=== PATIENT | female | born 1995 | race Caucasian/White ===

== ENCOUNTER 2017-11-01 18:39 | Emergency (ER) | payer BC, SELFPAY ==
[2017-11-01 19:04] LABS: #Basophils 0.2 thou/uL (0.0-0.2); #Eosinphils 0.2 thou/uL (0.0-0.7); #Lymphocytes 3.8 thou/uL (1.20-3.40); %Basophils 1.3 % (0.0-1.0); %Eosinophils 1.6 % (0.0-10.0); %Lymphocytes 31.7 % (21.0-51.0); %Monocytes 7.9 % (0.0-10.0); Hematocrit 47.4 % (36.0-47.0); Mean Platelet Volume 7.5 fL (7.4-10.4); Red Blood Cell (RBC) Count 5.13 mill/uL (4.20-5.40); White Blood Cell (WBC) Count 12.1 thou/uL (4.8-10.8)
[2017-11-01] MEDS ORDERED: Ketorolac Tromethamine 30 MG/ML VIAL ONE (19:04)
[2017-11-01 19:06] LABS: Bilirubin Negative (Negative); Blood, Urine Small (Negative); Glucose, Urine (Dipstick) Negative (Negative); Ketone, Urine Negative (Negative); Nitrite Negative (Negative); Protein, Urine (Dipstick) Negative (Neg-Trace); Urobilinogen 0.2 mg/dL (0.2-1.0)
[2017-11-01 19:09] LABS: Bacteria/HPF 2+ HPF (None Seen); Squamous Epithelial 0-3 HPF (0-3)
[2017-11-01] MEDS ORDERED: Ondansetron HCl/PF 4 MG/2 ML Vial ONE (19:20)
[2017-11-01 19:22] LABS: ALT (SGPT) 14 U/L (8-55); AST (SGOT) 15 U/L (5-34); Alkaline Phosphatase 70 U/L (40-150); Anion Gap 14 mmol/L (10-20); BUN (Urea Nitrogen) 10 mg/dL (7.0-18.7); Bilirubin, Total 0.4 mg/dL (0.2-1.2); Calc. Creatinine Clearance 0 mL/min (70-130); Calcium 9.6 mg/dL (7.8-10.44); Carbon Dioxide 27 mmol/L (22-29); Chloride 106 mmol/L (98-107); Estimated GFR-MDRD Greater than 90; Lipase 36 U/L (8-78); Protein, Total 7.5 g/dL (6.0-8.3)
[2017-11-01] MEDS ORDERED: HYDROcodone/Acetaminophen 10/325 mg Tablet ONE (19:48)
[2017-11-01] MEDS ORDERED: cefTRIAXone\\ROCEPHIN 1 GM VIAL ONE (19:48)
--- NOTE | 2017-11-01 20:13 | CT ---
EXAM: ABDOMEN CT WITHOUT CONTRAST PELVIC CT WITHOUT CONTRAST 11/01/17 HISTORY: Right flank pain. COMPARISON: None. TECHNIQUE: An abdomen and pelvic CT are performed without IV contrast. Coronal reformatted images are submitted for interpretation. FINDINGS: ABDOMEN CT: The lung bases are clear. Heart size is normal. No significant pericardial fluid. Symmetric attenuati on of the psoas muscles. Gallbladder is unremarkable. Limited evaluation of the solid organs due to lack of IV contrast. Grossly, no solid organ abnormalit y. No mesenteric mass, lymphadenopathy, free air or free fluid. There are a few scattered nonspecific me senteric lymph nodes. No gastrohepatic, retrocrural or periportal lymphadenopathy. There are nonobstructing 5 and 2 mm calcification in the right intrarenal collecting system. With reg franki to the right kidney, no evidence of hydronephrosis. Right ureter has a normal caliber. No hydrour eter, periureteral fat stranding or ureterolithiasis. With regard to the left kidney, there is a mildly hyperdense focus in the lower pole measuring 0.4 cm . There is associated convexity of the adjacent parenchyma. Evaluation is limited. No evidence of lef t sided obstructive uropathy. Limited evaluation of the alimentary canal due to lack of oral contrast . No bowel obstruction. Normal caliber appendix is noted. Appendicoliths are identified. Fecal mater ial in a nondistended, nondilated colon. PELVIC CT: The uterus and adnexa are unremarkable. Bladder calcifications are not appreciated. No pelvic mass, l ymphadenopathy, free air or free fluid. There are no lytic or blastic lesions in the osseous structures. IMPRESSION: 1. No evidence of obstructive uropathy. 2. Nonobstructing calcifications in the right intrarenal collecting system. 3. Convexity with hyperdensity involving the lower pole of the left kidney, incompletely evaluat ed. A hemorrhagic or complex lesion in the lower pole left kidney is favored. Nonemergent renal mass protocol CT is recommended. 4. Normal caliber appendix. POS: [facility]
== END 2017-11-01 20:30 | disposition home or self-care (01) ==
LOC: SCSER 18:39
DX: N20.0 Calculus of kidney (principal); N39.0 Urinary tract infection, site not specified
CPT/HCPCS: 74176; 80053; 81003; 81015; 81025; 83690; 85025; 87077; 87086; 87186; 96361; 96365; 96366; 96375; J0696; J1885; J2405

== ENCOUNTER 2017-11-18 18:14 | Emergency (ER) | payer BC ==
[2017-11-18 18:41] LABS: #Basophils 0.1 thou/uL (0.0-0.2); #Lymphocytes 0.7 thou/uL (1.20-3.40); #Monocytes 0.5 thou/uL (0.11-0.59); #Neutrophils 8.4 thou/uL (1.40-6.50); %Basophils 0.8 % (0.0-1.0); %Eosinophils 0.1 % (0.0-10.0); %Lymphocytes 7.3 % (21.0-51.0); %Monocytes 5.6 % (0.0-10.0); Hematocrit 46.5 % (36.0-47.0); Mean Platelet Volume 8.2 fL (7.4-10.4); Red Blood Cell (RBC) Count 5.11 mill/uL (4.20-5.40); White Blood Cell (WBC) Count 9.8 thou/uL (4.8-10.8)
[2017-11-18] MEDS ORDERED: Ondansetron HCl/PF 4 MG/2 ML Vial ONE (18:56)
[2017-11-18 18:57] LABS: ALT (SGPT) 18 U/L (8-55); AST (SGOT) 18 U/L (5-34); Alkaline Phosphatase 66 U/L (40-150); Anion Gap 16 mmol/L (10-20); BUN (Urea Nitrogen) 15 mg/dL (7.0-18.7); Bilirubin, Total 0.4 mg/dL (0.2-1.2); Calc. Creatinine Clearance 0 mL/min (70-130); Calcium 8.6 mg/dL (7.8-10.44); Carbon Dioxide 22 mmol/L (22-29); Chloride 106 mmol/L (98-107); Estimated GFR-MDRD Greater than 90; Globulin 2.4 g/dL (2.4-3.5); Lipase 32 U/L (8-78); Protein, Total 6.2 g/dL (6.0-8.3)
--- NOTE | 2017-11-18 19:38 | RAD ---
CHEST PA AND LATERAL: 11/18/17 HISTORY: 22-year-old female with nausea, vomiting, diarrhea, cramping and chills. COMPARISON: 02/19/09. FINDINGS: Heart size is normal. The lungs are clear. IMPRESSION: No acute intrathoracic disease. No evidence for pneumonia or other acute process. POS: [facility]
[2017-11-18] MEDS ORDERED: Ketorolac Tromethamine 30 MG/ML VIAL ONE (19:40)
[2017-11-18 20:28] LABS: Bilirubin Small (Negative); Blood, Urine Negative (Negative); Glucose, Urine (Dipstick) Negative (Negative); Ketone, Urine 15 mg/dL (Negative); Nitrite Negative (Negative); Protein, Urine (Dipstick) Negative (Neg-Trace)
[2017-11-18 20:35] LABS: Amphetamine Not Detected (NotDetected); Methadone Not Detected (NotDetected); Methamphetamine Not Detected (NotDetected)
== END 2017-11-18 21:13 | disposition home or self-care (01) ==
LOC: SCSER 18:14
DX: R11.2 Nausea with vomiting, unspecified (principal); R19.7 Diarrhea, unspecified; F17.200 Nicotine dependence, unspecified, uncomplicated
CPT/HCPCS: 36415; 71020; 80053; 80306; 81003; 81025; 83690; 85025; 87081; 87430; 96361; 96374; 96375; J1885; J2405

== ENCOUNTER 2017-11-30 01:34 | Emergency (ER) | payer BC ==
[2017-11-30] MEDS ORDERED: Morphine 2 MG/ML SYRINGE ONE (02:12)
[2017-11-30] MEDS ORDERED: Ketorolac Tromethamine 30 MG/ML VIAL ONE (02:12)
[2017-11-30] MEDS ORDERED: Ondansetron HCl/PF 4 MG/2 ML Vial ONE (02:12)
[2017-11-30] MEDS ORDERED: Morphine 4 MG/ML VIAL ONE (02:12)
[2017-11-30 02:17] LABS: #Basophils 0.1 thou/uL (0.0-0.2); #Eosinphils 0.2 thou/uL (0.0-0.7); #Lymphocytes 3.2 thou/uL (1.20-3.40); #Neutrophils 13.9 thou/uL (1.40-6.50); %Basophils 0.6 % (0.0-1.0); %Eosinophils 1.1 % (0.0-10.0); %Lymphocytes 16.5 % (21.0-51.0); %Monocytes 10.1 % (0.0-10.0); %Neutrophils 71.8 % (42.0-75.0); Hemoglobin 15.7 g/dL (12.0-16.0); Mean Corpuscular HGB CONC 34.2 g/dL (32.0-36.0); Mean Corpuscular Hemoglobin 32.9 pg (27.0-31.0); Mean Corpuscular Volume 96.1 fl (81.0-99.0); Mean Platelet Volume 7.2 fL (7.4-10.4); Platelet Count 211 thou/uL (130-400); Red Blood Cell (RBC) Count 4.77 mill/uL (4.20-5.40); White Blood Cell (WBC) Count 19.4 thou/uL (4.8-10.8)
[2017-11-30 02:51] LABS: BHCG - Serum Negative (NEGATIVE); Pregs Control Background? CLEAR/WHITE (CLR/WHITE); Pregs Control Bar Appear? YES (CONTROL BAR)
[2017-11-30 03:04] LABS: ALT (SGPT) 19 U/L (8-55); AST (SGOT) 18 U/L (5-34); Albumin 3.8 g/dL (3.5-5.0); Alkaline Phosphatase 51 U/L (40-150); Anion Gap 13 mmol/L (10-20); BUN (Urea Nitrogen) 15 mg/dL (7.0-18.7); Bilirubin, Total 0.6 mg/dL (0.2-1.2); Calc. Creatinine Clearance 0 mL/min (70-130); Calcium 9.5 mg/dL (7.8-10.44); Carbon Dioxide 25 mmol/L (22-29); Chloride 106 mmol/L (98-107); Estimated GFR-MDRD 63; Globulin 2.2 g/dL (2.4-3.5); Glucose 108 mg/dL (70-105); Lipase 28 U/L (8-78); Magnesium 1.7 mg/dL (1.6-2.6); Potassium 3.3 mmol/L (3.5-5.1); Sodium 141 mmol/L (136-145)
[2017-11-30 03:59] LABS: Bilirubin Negative (Negative); Blood, Urine Small (Negative); Clarity CLEAR (Clear); Glucose, Urine (Dipstick) Negative (Negative); Leukocyte Negative (Negative); Nitrite Negative (Negative); Protein, Urine (Dipstick) 100 mg/dL (Neg-Trace); Specific Gravity, Urine 1.013 (1.002-1.036); Urobilinogen 0.2 mg/dL (0.2-1.0)
[2017-11-30 04:02] LABS: Bacteria/HPF None Seen HPF (None Seen); Hyaline Casts/LPF 0-3 HYALINE CAST LPF (0-3 Hyaline); Pathc Cast-AUWi Flag 0.13 (0-2.49); RBC/HPF 0-3 HPF (0-3); Squamous Epithelial 0-3 HPF (0-3); WBC/HPF 0-3 HPF (0-3)
[2017-11-30 04:11] LABS: Pregnancy Test - Urine (BHCG) Negative (Negative); Pregu Control Background? CLEAR/WHITE (CLR/WHITE); Pregu Control Bar Appear? YES (CONTROL BAR); Specific Gravity 1.013 (1.002-1.036)
--- NOTE | 2017-11-30 08:06 | CT ---
PRELIMINARY REPORT/[facility]/EMERGENCY AFTER HOURS PROCEDURE: EXAM: CT Abdomen and Pelvis Without Intravenous Contrast CLINICAL HISTORY: 22 years old, female; Pain; Abdominal pain; Flank; Other: Bilater flank pain; Patient HX: 22 yo f. Pt presents with n/v, unable to tolerate po, fever at home, having bilateral flank pain with known bila teral stones. Mother reports that pt was normal when she went to bed but at midnight had the sudden o nset of pain. TECHNIQUE: Axial computed tomography images of the abdomen and pelvis without intravenous contrast. Coronal reformatted images were created and reviewed. COMPARISON: No relevant prior studies available. FINDINGS: Lower thorax: No acute findings. ABDOMEN: Liver: No acute findings. Gallbladder and bile ducts: No acute findings. No calcified stones. No ductal dilation. Pancreas: No acute findings. No ductal dilation. Spleen: No acute findings. No splenomegaly. Adrenals: No acute findings. No mass. Kidneys and ureters: Nonspecific mild focal right interpolar level perinephric fluid stranding. Nono bstructing 6 mm stone, left lower pole. Stomach and bowel: No acute findings. No obstruction. No mucosal thickening. Appendix: No findings to suggest acute appendicitis. PELVIS: Bladder: No acute findings. No stones. Reproductive: Unremarkable as visualized. ABDOMEN and PELVIS: Intraperitoneal space: No acute findings. No free air. No significant fluid collection. Bones/joints: No acute fracture. No dislocation. Soft tissues: No acute findings. Vasculature: No acute findings. No abdominal aortic aneurysm. Lymph nodes: No acute findings. No enlarged lymph nodes. IMPRESSION: Mild nonspecific right perinephric fluid stranding, perhaps related to pyelonephritis or recent stone passage. No hydronephrosis. Nonobstructing left renal stone. Normal appendix. Thank you for allowing us to participate in the care of your patient. Dictated and Authenticated by: Stone Greenfield MD 11/30/2017 4:34 AM Central Time ([place] & [place]) FINAL REPORT CT ABDOMEN AND PELVIS WITHOUT CONTRAST: I agree with the preliminary report given by Dr. Stone Greenfield of [facility]. POS: [facility]
== END 2017-11-30 06:00 | disposition home or self-care (01) ==
LOC: ERS 01:34
DX: N20.0 Calculus of kidney (principal); F17.210 Nicotine dependence, cigarettes, uncomplicated
CPT/HCPCS: 74176; 80053; 81003; 81015; 81025; 83690; 83735; 84703; 85025; 96361; 96374; 96375; J1885; J2270; J2405

== ENCOUNTER 2017-12-01 19:53 | Inpatient (IN) | payer BC ==
[2017-12-01 20:32] LABS: #Basophils 0.1 thou/uL (0.0-0.2); #Eosinphils 0.1 thou/uL (0.0-0.7); #Lymphocytes 2.3 thou/uL (1.20-3.40); #Monocytes 1.3 thou/uL (0.11-0.59); %Basophils 0.6 % (0.0-1.0); %Lymphocytes 16.7 % (21.0-51.0); %Monocytes 9.5 % (0.0-10.0); %Neutrophils 72.2 % (42.0-75.0); Hemoglobin 15.7 g/dL (12.0-16.0); Mean Corpuscular HGB CONC 34.3 g/dL (32.0-36.0); Mean Corpuscular Volume 96.1 fl (81.0-99.0); Mean Platelet Volume 7.6 fL (7.4-10.4); Platelet Count 222 thou/uL (130-400); Red Blood Cell (RBC) Count 4.75 mill/uL (4.20-5.40); White Blood Cell (WBC) Count 13.8 thou/uL (4.8-10.8)
[2017-12-01 21:01] LABS: ALT (SGPT) 15 U/L (8-55); AST (SGOT) 18 U/L (5-34); Albumin 3.6 g/dL (3.5-5.0); Alkaline Phosphatase 59 U/L (40-150); Anion Gap 14 mmol/L (10-20); BUN (Urea Nitrogen) 16 mg/dL (7.0-18.7); Calc. Creatinine Clearance 0 mL/min (70-130); Calcium 9.4 mg/dL (7.8-10.44); Carbon Dioxide 25 mmol/L (22-29); Chloride 107 mmol/L (98-107); Estimated GFR-MDRD 32; Globulin 2.5 g/dL (2.4-3.5); Glucose 93 mg/dL (70-105); Lipase 12 U/L (8-78); Potassium 3.7 mmol/L (3.5-5.1); Protein, Total 6.1 g/dL (6.0-8.3); Sodium 142 mmol/L (136-145)
[2017-12-01] MEDS ORDERED: Ondansetron HCl/PF 4 MG/2 ML Vial ONE (23:20)
[2017-12-01 23:38] LABS: Bilirubin Negative (Negative); Blood, Urine Small (Negative); Clarity CLEAR (Clear); Glucose, Urine (Dipstick) Negative (Negative); Leukocyte Trace (Negative); Nitrite Negative (Negative); Protein, Urine (Dipstick) Negative (Neg-Trace); Specific Gravity, Urine 1.017 (1.002-1.036); Urobilinogen 0.2 mg/dL (0.2-1.0)
[2017-12-01 23:39] LABS: Pregnancy Test - Urine (BHCG) Negative (Negative); Pregu Control Background? CLEAR/WHITE (CLR/WHITE); Pregu Control Bar Appear? YES (CONTROL BAR); Specific Gravity 1.017 (1.002-1.036)
[2017-12-01 23:40] LABS: Bacteria/HPF None Seen HPF (None Seen); Hyaline Casts/LPF 0-3 HYALINE CAST LPF (0-3 Hyaline); RBC/HPF 0-3 HPF (0-3); Squamous Epithelial 0-3 HPF (0-3)
--- NOTE | 2017-12-01 23:47 | RAD ---
CHEST ONE VIEW 12/01/17 HISTORY: Cough. COMPARISON: Chest two view from 2008. FINDINGS: Lungs are clear. No pneumothorax or effusion. Cardiac silhouette and mediastinal contours are within normal limits. IMPRESSION: No acute intrathoracic abnormality. POS: [facility]
--- NOTE | 2017-12-01 23:47 | CT ---
CT ABDOMEN AND PELVIS STONE PROTOCOL WITHOUT CONTRAST 12/01/17 HISTORY: Renal stone. COMPARISON: Stone protocol CT the prior day. FINDINGS: Lung bases are clear. No pericardial effusion. There is low grade right sided renomegaly. Perinephric stranding is improving. No hydroureteronephros is. There is no calculus within the right renal collecting system. There is a calculus inferior pole left renal collecting system. No left sided hydroureteronephrosis. There is no calculus within the urinary bladder. No dilated loops of large or small bowel. The pancreas is visualized and is normal. The skeleton is unremarkable. Noncontrast evaluation of the liver, spleen, adrenal glands, gallbladder are unremarkable. IMPRESSION: 1. Mildly improving right sided perinephric stranding may be sequela of pyelonephritis or recent ly passed stone. No hydroureteronephrosis. 2. Calculus inferior pole left kidney although may be layering within a cyst. 3. On the 11/01/17 examination, there was a calculus in the inferior pole right kidney which is n o longer present. POS: [facility]
[2017-12-01] MEDS ORDERED: Morphine 4 MG/ML VIAL ONE (23:54)
[2017-12-02] MEDS ORDERED: Fentanyl 100 MCG/2 ML VIAL ONE ×2 (00:37→05:27)
[2017-12-02] MEDS ORDERED: Promethazine HCl 25 MG/ML VIAL ONE (01:03)
[2017-12-02] MEDS ORDERED: Acetaminophen 325 MG TAB PO PRN (01:37)
[2017-12-02] MEDS ORDERED: Bisacodyl 5 MG TAB PO PRN (01:37)
[2017-12-02] MEDS ORDERED: Acetaminophen 650 MG Suppository PR PRN (01:37)
[2017-12-02] MEDS ORDERED: cefTRIAXone\\ROCEPHIN 1 GM in Sodium Chloride 0.9% 100 ML IVPB SCH (01:45)
--- NOTE | 2017-12-02 02:41 | HP ---
PRIMARY CARE PHYSICIAN: Mio Flores M.D. CHIEF COMPLAINT: Nausea and vomiting. HISTORY OF PRESENT ILLNESS: Ms. Roldan is a pleasant 22-year-old lady, who was seen at [facility] on 12/02/2017. About a month ago, she was found to have three kidney stones. She passed one of them. Three nights ago, she developed bilateral flank pain. She was also found to have a temperature of 10 1.9 degrees Fahrenheit. She was brought to the emergency room. In the emergency room, she was diagn osed with Nephrolithiasis. She was started on Motrin and discharged home; however, she could not esmer e any medications because of ongoing nausea and vomiting. She describes the pain in flanks as bilate ral, sharp, 8/10 at its worst, nonradiating and constant. She cannot recall any relieving factors or aggravating factors. She denies any chest pain. Today, she also developed dysuria. She came to the emergency room because of ongoing flank pain as well as nausea and vomiting. REVIEW OF SYSTEMS: The following complete review of systems was negative, unless otherwise mentioned in the HPI or below: Constitutional: Weight loss or gain, ability to conduct usual activities. Sk in: Rash, itching. Eyes: Double vision, pain. ENT/Mouth: Nose bleeding, neck stiffness, pain, te nderness. Cardiovascular: Palpitations, dyspnea on exertion, orthopnea. Respiratory: Shortness of breath, wheezing, cough, hemoptysis, fever or night sweats. Gastrointestinal: Poor appetite, abdom inal pain, heartburn, nausea, vomiting, constipation, or diarrhea. Genitourinary: Urgency, frequenc y, dysuria, nocturia. Musculoskeletal: Pain, swelling. Neurologic/Psychiatric: Anxiety, depressio n. Allergy/Immunologic: Skin rash, bleeding tendency. PAST MEDICAL HISTORY: Nephrolithiasis. PAST SURGICAL HISTORY: None. SOCIAL HISTORY: Patient is a current smoker. She denies recreational drug use. She drinks alcohol occasionally. FAMILY HISTORY: Significant for nephrolithiasis and renal cell carcinoma in her mother. ALLERGIES: No known drug allergies. CURRENT MEDICATIONS: None. PHYSICAL EXAMINATION: GENERAL: Ms. Roldan is awake and alert, in moderate distress from pain. VITAL SIGNS: Blood pressure is 103/63, pulse is 74. She is breathing at rate of 22 and saturating 9 9% on room air. She is afebrile. EYES: No scleral icterus, no conjunctival pallor. ENT: Moist mucosal membranes, no oropharyngeal erythema or exudates. NECK: Supple, nontender, normal range of movement. Trachea is midline. RESPIRATORY: Accessory muscles of breathing are not active. Chest wall movements are symmetric bila terally. LUNGS: Clear to auscultation without wheeze, rhonchi, or crepitations. ABDOMEN: Soft, she has mild epigastric tenderness, no guarding or rigidity. She also has bilateral costovertebral angle tenderness. No hepatomegaly or splenomegaly. NEUROLOGIC: Cranial nerves II through XII are intact. Deep tendon reflexes 2+. SKIN: No rashes or subcutaneous nodules. MUSCULOSKELETAL: Power is 5/5 in all 4 extremities. Normal range of movement at all major extremity joints. LYMPHATIC: No cervical lymphadenopathy. PSYCHIATRIC: The patient appears anxious, oriented to person, place, and time. DATABASE: Ms. Roldan labs and investigations were reviewed. She had a CT scan of the abdomen and pel vis, which showed mildly improving right-sided perinephric stranding, which could be sequelae of pyel onephritis or recently passed stone. There is no hydroureteronephrosis. She also has calculus in th e inferior pole of the left kidney. She appears to have passed inferior pole of right kidney calculu s when compared to the CT scan from previous presentation. She has leukocytosis with 13,800 white ce lls, of which 72% are neutrophils, normal hemoglobin, normal platelet count, elevated creatinine of 1 .95, last known creatinine 1.09 on 11/30/2017, otherwise normal comprehensive metabolic profile and u rinalysis positive for ketones, small amount of blood and trace leukocyte esterase. Urine test is negative. ASSESSMENT AND PLAN: Ms. Roldan is a pleasant 22-year-old lady, who was seen at [facility] on 12/02/2017. Her problem list includes: 1. Acute kidney injury: Could be prerenal, given her history of nausea and vomiting. There is no e vidence of hydronephrosis on the CT scan. We will provide her intravenous hydration and recheck crea tinine. 2. Flank pain: More likely secondary to nephrolithiasis, although urinary tract infection still rem ains a possibility. She will be admitted to the hospital for further management with pain medication s. 3. Urinary tract infection. Suspected, could be pyelonephritis complicating nephrolithiasis. We wi ll start patient on empiric antibiotics and await urine cultures. 4. Tobacco abuse: Smoking cessation counseling, nicotine replacement therapy. Many thanks for allowing me to participate in your patient's care. Please feel free to contact me wi th any questions or concerns. LEVEL OF RISK: Moderate. LEVEL OF COMPLEXITY: Moderate.
[2017-12-02 02:56] LABS: #Basophils 0.1 thou/uL (0.0-0.2); #Eosinphils 0.1 thou/uL (0.0-0.7); #Lymphocytes 2.2 thou/uL (1.20-3.40); #Monocytes 1.1 thou/uL (0.11-0.59); #Neutrophils 7.8 thou/uL (1.40-6.50); %Basophils 0.7 % (0.0-1.0); %Eosinophils 1.1 % (0.0-10.0); %Lymphocytes 19.4 % (21.0-51.0); %Monocytes 10.1 % (0.0-10.0); %Neutrophils 68.7 % (42.0-75.0); Hemoglobin 13.2 g/dL (12.0-16.0); Mean Corpuscular HGB CONC 33.4 g/dL (32.0-36.0); Mean Corpuscular Hemoglobin 32.5 pg (27.0-31.0); Mean Corpuscular Volume 97.5 fl (81.0-99.0); Mean Platelet Volume 7.6 fL (7.4-10.4); Platelet Count 190 thou/uL (130-400); Red Blood Cell (RBC) Count 4.05 mill/uL (4.20-5.40); White Blood Cell (WBC) Count 11.3 thou/uL (4.8-10.8)
[2017-12-02 03:23] LABS: Anion Gap 14 mmol/L (10-20); BUN (Urea Nitrogen) 15 mg/dL (7.0-18.7); Calc. Creatinine Clearance 0 mL/min (70-130); Carbon Dioxide 21 mmol/L (22-29); Chloride 111 mmol/L (98-107); Estimated GFR-MDRD 42; Glucose 89 mg/dL (70-105); Sodium 143 mmol/L (136-145)
[2017-12-02] MEDS ORDERED: Adacel (T-DAP) 0.5 ML VIAL ONE (03:49)
[2017-12-02] MEDS ORDERED: CEFAZOLIN/Water 2 GM/20 ML SYRINGE ONE (03:49)
[2017-12-02] MEDS ORDERED: Ondansetron HCl/PF 4 MG/2 ML Vial ONE (05:49)
[2017-12-02] MEDS: cefTRIAXone\\ROCEPHIN 1 GM, Syringe 0.4 ML in Sterile Water 9.6 ML SLOW IVP SCH (07:22)
[2017-12-02] MEDS: Sodium Chloride 0.9% 1,000 ML IV SCH ×4 (07:22→20:50)
[2017-12-02 08:17] VITALS: BMI 37.7
[2017-12-02] MEDS: Nicotine 21 MG PATCH TD SCH (09:15)
[2017-12-02] MEDS: Enoxaparin Sodium 40 MG/0.4 ML SYRINGE SC SCH (09:15)
[2017-12-02] MEDS: Morphine 4 MG/ML VIAL SLOW IVP PRN ×2 (10:04→23:23)
[2017-12-02] MEDS ORDERED: Lorazepam 2 MG/ML VIAL SLOW IVP PRN (10:23)
[2017-12-02] MEDS: Ondansetron HCl/PF 4 MG/2 ML Vial IVP PRN ×2 (14:23→20:44)
[2017-12-02] MEDS: Promethazine HCl 25 MG/ML VIAL IM/IV PRN (16:44)
--- NOTE | 2017-12-02 17:26 | PDOC.PN ---
- Subjective Encounter Start Date: 12/02/17 Encounter Start Time: 17:24 Ms. Roldan was seen today in follow-up of severe flank pain and vomiting. She says she has not been able to keep anything down, not even liquids. She is still having pain on both sides. - Objective MAR Reviewed: Yes Vital Signs & Weight: Vital Signs (12 hours) Temp Pulse Resp BP Pulse Ox 12/02/17 16:46 42 L 20 127/61 96 12/02/17 12:00 98.9 F 61 20 131/72 92 L 12/02/17 09:01 98.8 F 50 L 20 98 12/02/17 08:00 98.8 F 50 L 20 12/02/17 06:50 98.8 F 50 L 20 116/69 98 Weight Weight 212 lb 15.465 oz Result Diagrams: 12/02/17 02:35 12/02/17 02:35 Phys Exam - Physical Examination HEENT: PERRLA Respiratory: no wheezing, no rales, no rhonchi, clear to auscultation bilateral Cardiovascular: RRR, no significant murmur, no rub Gastrointestinal: soft, positive bowel sounds + mild diffuse tenderness Musculoskeletal: no edema Dx/Plan (1) Nephrolithiasis Status: Acute (2) Pyelonephritis Code(s): N12 - TUBULO-INTERSTITIAL NEPHRITIS, NOT SPCF ACUTE OR CHRONIC Status: Acute (3) Nausea & vomiting Code(s): R11.2 - NAUSEA WITH VOMITING, UNSPECIFIED Status: Acute (4) Acute kidney injury Code(s): N17.9 - ACUTE KIDNEY FAILURE, UNSPECIFIED Status: Acute - Plan * Acute renal failure- will repeat her creatinine in the AM, continue IV fluids , and will increase the rate * Nephrolithiasis- she appears to have passed the stone as per the CT-scan- if she continues to have pain, and nausea, will consult Urology * Nausea and vomiting- treat symptomatically. * Pyuria, possible UTI and Pyelonephritis- will continue Rocephin, and await culture results
[2017-12-02] MEDS ORDERED: Ketorolac Tromethamine 30 MG/ML VIAL IVP SCH (20:45)
[2017-12-03] MEDS: Promethazine HCl 25 MG/ML VIAL IM/IV PRN ×4 (00:17→15:08)
[2017-12-03] MEDS: cefTRIAXone\\ROCEPHIN 1 GM, Syringe 0.4 ML in Sterile Water 9.6 ML SLOW IVP SCH (02:11)
[2017-12-03] MEDS: Sodium Chloride 0.9% 1,000 ML IV SCH ×2 (04:19→13:35)
[2017-12-03] MEDS: Ondansetron HCl/PF 4 MG/2 ML Vial IVP PRN ×3 (05:24→17:49)
[2017-12-03] MEDS: Morphine 5 mg/5 ml in 0.9% NaCl/PF SYRINGE SLOW IVP PRN (05:25)
[2017-12-03 08:01] LABS: Anion Gap 14 mmol/L (10-20); BUN (Urea Nitrogen) 11 mg/dL (7.0-18.7); Calc. Creatinine Clearance 103 mL/min (70-130); Calcium 8.4 mg/dL (7.8-10.44); Carbon Dioxide 24 mmol/L (22-29); Chloride 109 mmol/L (98-107); Estimated GFR-MDRD 51; Glucose 80 mg/dL (70-105); Potassium 3.7 mmol/L (3.5-5.1); Sodium 143 mmol/L (136-145)
[2017-12-03] MEDS: Enoxaparin Sodium 40 MG/0.4 ML SYRINGE SC SCH (10:01)
[2017-12-03] MEDS: Nicotine 21 MG PATCH TD SCH (10:39)
--- NOTE | 2017-12-03 10:56 | PDOC.PN ---
- Subjective Encounter Start Date: 12/03/17 Encounter Start Time: 10:52 Ms. Roldan was seen today in follow-up. She is still having the same degree of pain today as she did yesterday. She continues to have nausea. - Objective MAR Reviewed: Yes Vital Signs & Weight: Vital Signs (12 hours) Temp Pulse Resp BP Pulse Ox 12/03/17 08:20 97.9 F 87 20 137/82 96 12/03/17 04:15 98.2 F 58 L 20 112/69 95 12/03/17 02:10 96 Weight Weight 212 lb 15.465 oz I&O: 12/02/17 12/03/17 12/04/17 06:59 06:59 06:59 Intake Total 3471 20 Output Total 1550 Balance 1921 20 Result Diagrams: 12/02/17 02:35 12/03/17 07:24 Phys Exam - Physical Examination HEENT: PERRLA Respiratory: no wheezing, no rales, no rhonchi, clear to auscultation bilateral Cardiovascular: RRR, no significant murmur Gastrointestinal: soft, non-tender, positive bowel sounds + flank pain Musculoskeletal: no edema Dx/Plan (1) Nephrolithiasis Status: Acute (2) Pyelonephritis Code(s): N12 - TUBULO-INTERSTITIAL NEPHRITIS, NOT SPCF ACUTE OR CHRONIC Status: Acute (3) Nausea & vomiting Code(s): R11.2 - NAUSEA WITH VOMITING, UNSPECIFIED Status: Acute (4) Acute kidney injury Code(s): N17.9 - ACUTE KIDNEY FAILURE, UNSPECIFIED Status: Acute - Plan * Bilateral Flank Pain- ? etiology it appears the stone has passes- will Consult Urology for evaluation * Nausea- ? etiology- will await Urology evaluation- she may require GI evaluation as well * Urine Culture is still pending- will continue Rocephin in the interim. She does not have fever, her vital signs are normal, and Rocephinwas chosen based on a prior Urine Culture which grew E. Coli which was sensitive to Rocephin. * Acute renal failure- improving
--- NOTE | 2017-12-03 19:03 | CON ---
DATE OF CONSULTATION: 12/03/2017 REASON FOR CONSULTATION: Bilateral flank pain. HISTORY OF PRESENT ILLNESS: Ms. Roldan is a 22-year-old female who was seen in the emergency room on 12/01/2017 for flank pain. She underwent an imaging study that demonstrated some perinephric strandi ng, but no obstructive calculus or hydronephrosis. She was treated supportively and discharged home. She returned on 12/02/2017 with persistent pain, nausea, and vomiting. This is discontinued and fo r several days now, she has not been able to tolerate anything by mouth, felt nausea and vomiting. S he has also continued to complain of bilateral flank pain. A urine culture was performed when she wa s initially seen in the emergency room on 12/01/2017 and the culture was negative. Although, she gav e a history of fever. There has been no fevers since her admission. Her admission white blood cell count was 13.8 and it has dropped to 11.3. She had another CT scan that again showed no evidence of hydronephrosis and no stones. Currently, she finds her most bothersome problem with nausea and vomit ing, although the bilateral back pain persists. PAST MEDICAL HISTORY: Kidney stones. PAST SURGICAL HISTORY: None. SOCIAL HISTORY: She smokes cigarettes. She denies excessive alcohol use. She lives at home with he r mother and stepfather. FAMILY HISTORY: Mom diagnosed with renal cancer. REVIEW OF SYSTEMS: RESPIRATORY: No shortness of breath. CARDIOVASCULAR: No chest pain or palpitations. GASTROINTESTINAL: Please see history of present illness. In addition, she has not had a bowel movem ent in the last 4-5 days. GENITOURINARY: Denies dysuria or hematuria. NEUROLOGIC: No focal neurologic complaints. PHYSICAL EXAMINATION: GENERAL: She is awake and alert. She is in no distress. VITAL SIGNS: Most recent vital signs, temperature 97.9, blood pressure 137/82, pulse 87, respiratory rate 20 and O2 sat 96%. HEENT: Normocephalic and atraumatic. NECK: Supple, without masses. CHEST: Clear to auscultation. CARDIOVASCULAR: No murmurs auscultated. ABDOMEN: Soft and nontender. No palpable masses. Liver and spleen are not palpable. No peritoneal signs. LABORATORY DATA: CT scan on 11/12, two stones noted in the right kidney, calcification noted in the left kidney consistent with a parenchymal versus some calcification in the cyst. CT scan on 11/30/19 18, no calculi seen, parenchymal versus calcification, left side. CT scan on 12/01/2017, no calcific ations, no hydronephrosis, persistent calcification in the left kidney, parenchymal versus left renal cyst. Urine culture on 12/01/2017 negative. IMPRESSION AND PLAN: Ms. Roldan is a 22-year-old female who complains of bilateral flank pain. Urina lysis does not suggest pyelonephritis and she has not responded to antibiotics. She has also had per sistent nausea and vomiting and is unable to tolerate even water. Imaging studies demonstrate no mark dence of obstructive uropathy. None of these studies were functional in nature, so we will proceed w ith additional imaging by nuclear medicine renal scan to further prove there is no urinary tract obst ruction. Assuming there is no obstruction, then further workup from a gastrointestinal standpoint to determine the potential source for her nausea and vomiting would be recommended. Furthermore, it do es not appear that she has pyelonephritis based on no bacteria seen on the urine culture and no fever since admission and no improvement on IV antibiotic therapy. If GI workup is negative, we will cons ider nephrology evaluation.
[2017-12-03] MEDS ORDERED: Sterile Water 10 ML ONE (20:32)
[2017-12-03] MEDS: Pantoprazole 40 MG VIAL IVP SCH (20:43)
[2017-12-04] MEDS: Sodium Chloride 0.9% 1,000 ML IV SCH ×3 (00:28→17:34)
[2017-12-04] MEDS: Morphine 5 mg/5 ml in 0.9% NaCl/PF SYRINGE SLOW IVP PRN ×3 (00:28→12:36)
[2017-12-04] MEDS: Promethazine HCl 25 MG/ML VIAL IM/IV PRN ×2 (00:29→05:59)
[2017-12-04] MEDS: Ondansetron HCl/PF 4 MG/2 ML Vial IVP PRN ×4 (00:30→19:38)
[2017-12-04] MEDS: cefTRIAXone\\ROCEPHIN 1 GM, Syringe 0.4 ML in Sterile Water 9.6 ML SLOW IVP SCH (02:11)
[2017-12-04 05:45] LABS: #Basophils 0.1 thou/uL (0.0-0.2); #Eosinphils 0.2 thou/uL (0.0-0.7); #Lymphocytes 2.1 thou/uL (1.20-3.40); #Monocytes 0.9 thou/uL (0.11-0.59); #Neutrophils 7.3 thou/uL (1.40-6.50); %Basophils 0.9 % (0.0-1.0); %Eosinophils 2.3 % (0.0-10.0); %Lymphocytes 19.8 % (21.0-51.0); %Monocytes 8.8 % (0.0-10.0); %Neutrophils 68.1 % (42.0-75.0); Hemoglobin 13.7 g/dL (12.0-16.0); Mean Corpuscular HGB CONC 34.3 g/dL (32.0-36.0); Mean Corpuscular Hemoglobin 32.6 pg (27.0-31.0); Mean Corpuscular Volume 95.1 fl (81.0-99.0); Mean Platelet Volume 7.8 fL (7.4-10.4); Platelet Count 203 thou/uL (130-400); RBC Distribution Width 10.8 % (11.5-14.5); White Blood Cell (WBC) Count 10.6 thou/uL (4.8-10.8)
[2017-12-04] MEDS ORDERED: Sodium Chloride 0.9% 10 ML ONE ×3 (05:53→19:26)
[2017-12-04 06:14] LABS: Anion Gap 14 mmol/L (10-20); BUN (Urea Nitrogen) 10 mg/dL (7.0-18.7); Calc. Creatinine Clearance 128 mL/min (70-130); Calcium 8.5 mg/dL (7.8-10.44); Carbon Dioxide 23 mmol/L (22-29); Chloride 111 mmol/L (98-107); Estimated GFR-MDRD 65; Glucose 74 mg/dL (70-105); Potassium 3.3 mmol/L (3.5-5.1); Sodium 145 mmol/L (136-145)
[2017-12-04] MEDS: Nicotine 21 MG PATCH TD SCH (08:56)
[2017-12-04] MEDS ORDERED: Potassium Chloride 40 MEQ in Sodium Chloride 0.9% 500 ML IVPB SCH (09:00)
[2017-12-04] MEDS: Enoxaparin Sodium 40 MG/0.4 ML SYRINGE SC SCH (12:33)
--- NOTE | 2017-12-04 13:58 | NM ---
NUCLEAR MEDICINE RENOGRAM: History: Evaluate for obstruction. Comparison: None. FINDINGS: Exam was performed after intravenous administration of 8.8 mCi Technetium 99M Mag 3. 5 mg of Lasix w as given 15 minutes prior to the start. Kidney function is 49.8% on the left and 50.2% on the right. The estimated GFR is 75 ml/min on the le ft and 75.6 ml/min on the right. The time of one-half max is slightly elevated. Of note, the patient had to void during the examinatio n ending it short. IMPRESSION: 1. Normal split function with equal function of both kidneys. 2. Slightly elevated time of one-half max likely physiologic in nature from pressure from the urinary bladder. Patient had to quit the exam early and had to void. POS: [facility]
--- NOTE | 2017-12-04 14:51 | PDOC.PN ---
- Subjective Encounter Start Date: 12/04/17 Encounter Start Time: 14:49 Ms. Roldan was seen today in follow-up. she says the pain in her back is getting better. She only notes it when she dry heaved this morning. She is still nauseated most of the day. she notes it when she gets up to walk, she will feel dizzy. She also has not had a bowel movement in 6 days. - Objective MAR Reviewed: Yes Vital Signs & Weight: Vital Signs (12 hours) Temp Pulse Resp BP 12/04/17 12:00 98.8 F 57 L 20 116/67 12/04/17 08:00 97.7 F 65 20 12/04/17 07:40 97.7 F 65 20 126/78 12/04/17 04:00 98.8 F 46 L 18 138/83 Weight Admit Weight 212 lb 15.465 oz Weight 212 lb 15.465 oz I&O: 12/03/17 12/04/17 12/05/17 06:59 06:59 06:59 Intake Total 3471 2060 Output Total 1550 800 Balance 1921 1260 Result Diagrams: 12/04/17 05:25 12/04/17 05:25 Phys Exam - Physical Examination HEENT: PERRLA Respiratory: no wheezing, no rales, no rhonchi, clear to auscultation bilateral Cardiovascular: RRR, no significant murmur Gastrointestinal: soft, positive bowel sounds + mild diffuse tenderness no rebound or guarding Musculoskeletal: no edema Dx/Plan (1) Nephrolithiasis Status: Acute (2) Pyelonephritis Code(s): N12 - TUBULO-INTERSTITIAL NEPHRITIS, NOT SPCF ACUTE OR CHRONIC Status: Acute (3) Nausea & vomiting Code(s): R11.2 - NAUSEA WITH VOMITING, UNSPECIFIED Status: Acute (4) Acute kidney injury Code(s): N17.9 - ACUTE KIDNEY FAILURE, UNSPECIFIED Status: Acute - Plan * Flank pain- likely from previous stone which has passed- she is beginning to get some relief * Renal scan results noted * Nausea- could be related to Morphine, and constipation- will give a dulcolax suppositiory, and discontinue Morphine * Urine culture was negative- can discontinue antibiotics at the time of discharge * Hopefully home tomorrow if tolerating p.o..
[2017-12-04] MEDS ORDERED: Bisacodyl 10 MG SUPP PR SCH (15:15)
[2017-12-04] MEDS: Pantoprazole 40 MG VIAL IVP SCH (19:34)
[2017-12-05] MEDS: cefTRIAXone\\ROCEPHIN 1 GM, Syringe 0.4 ML in Sterile Water 9.6 ML SLOW IVP SCH (02:34)
[2017-12-05] MEDS: Sodium Chloride 0.9% 1,000 ML IV SCH ×2 (02:35→18:33)
[2017-12-05] MEDS: Nicotine 21 MG PATCH TD SCH (09:51)
[2017-12-05] MEDS: Ondansetron HCl/PF 4 MG/2 ML Vial IVP PRN ×2 (09:52→18:33)
[2017-12-05] MEDS: Enoxaparin Sodium 40 MG/0.4 ML SYRINGE SC SCH (09:52)
[2017-12-05] MEDS ORDERED: Sodium Chloride 0.9% 20 ML ONE ×2 (13:11→18:48)
[2017-12-05] MEDS: Promethazine HCl 25 MG/ML VIAL IM/IV PRN (13:14)
[2017-12-05] MEDS ORDERED: Milk Of Magnesia 30 ML UDCUP PO PRN (13:16)
--- NOTE | 2017-12-05 14:22 | RAD ---
ACUTE ABDOMINAL SERIES INCLUDING TWO VIEW ABDOMEN AND FRONTAL VIEW CHEST: Indication: Abdominal pain with vomiting. FINDINGS: Lungs are clear. No free air beneath the hemidiaphragms. The cardiac silhouette is accentuated by bennett hnique. Bowel gas pattern is nonobstructed. Osseous structures are intact. IMPRESSION: No acute process evident. POS: [facility]
--- NOTE | 2017-12-05 14:43 | PDOC.PN ---
- Subjective Encounter Start Date: 12/05/17 Encounter Start Time: 14:42 Ms. Roldan was seen today in follow-up. She says she continues to have abdominal pain, it is now localized to the right side. She has not yet had a bowel movement. Her mother says that the vomiting has been going on for the past week , even before she started on medication for pain. - Objective MAR Reviewed: Yes Vital Signs & Weight: Vital Signs (12 hours) Temp Pulse Resp BP Pulse Ox 12/05/17 11:45 97.9 F 58 L 20 139/85 12/05/17 09:15 98.6 F 60 20 111/69 98 12/05/17 04:00 98.5 F 58 L 18 118/60 Weight Admit Weight 212 lb 15.465 oz Weight 212 lb 15.465 oz I&O: 12/04/17 12/05/17 12/06/17 06:59 06:59 06:59 Intake Total 2060 1400 Output Total 800 1500 Balance 1260 -100 Result Diagrams: 12/04/17 05:25 12/04/17 05:25 Phys Exam - Physical Examination HEENT: PERRLA Respiratory: no wheezing, no rales, no rhonchi, clear to auscultation bilateral Cardiovascular: RRR, no significant murmur Gastrointestinal: soft, positive bowel sounds + RUQ tenderness no rebound or guarding Musculoskeletal: no edema Dx/Plan (1) Nephrolithiasis Status: Acute (2) Pyelonephritis Code(s): N12 - TUBULO-INTERSTITIAL NEPHRITIS, NOT SPCF ACUTE OR CHRONIC Status: Acute (3) Nausea & vomiting Code(s): R11.2 - NAUSEA WITH VOMITING, UNSPECIFIED Status: Acute (4) Acute kidney injury Code(s): N17.9 - ACUTE KIDNEY FAILURE, UNSPECIFIED Status: Acute - Plan * Abdominal pain and nausea- her abdominal sersies is consistent with constipation- will continue to try and resolve this. It is not clear if this explains all of her symptoms. Will therefore abdominal an abdominal ultrasound to see if she has any [id number] stones or sludge in the gallbladder. I have also asked GI to see her as well * Will continue to try and avoid Morphine, until an etiology is found- as this may worsen the constipation * Nephrolithiasis- stable * Acute renal failure- resolved * UTI- ruled out.
[2017-12-05] MEDS ORDERED: Fleet Enema 133 ML BOT PR PRN (14:51)
--- NOTE | 2017-12-05 18:02 | ULT ---
ABDOMINAL ULTRASOUND: 12/05/17 HISTORY: Abdominal pain, right sided. TECHNIQUE: Reed-scale ultrasound evaluation of the liver, gallbladder, spleen, pancreas, common bile duct, kidne ys, abdominal aorta, and inferior vena cava (IVC). FINDINGS: There is no evidence of focal hepatic lesion. No acute gallbladder pathology or evidence of biliary d uctal dilatation. Incidental note of pleural fluid. Correlate clinically. No acute renal pathology. T he spleen is grossly unremarkable. The pancreas is obscured from view by bowel content as are portion s of the aorta limiting assessment in this regard. IMPRESSION: 1. No definite evidence for acute intra-abdominal process. 2. Pleural fluid incidentally noted. Correlate with dedicated two view chest series for further evaluation. POS: [facility]
--- NOTE | 2017-12-05 22:26 | CON ---
GI INPATIENT CONSULTATION NOTE DATE OF CONSULTATION: 12/05/2017 REQUESTING PHYSICIAN: Dr. López. REASON FOR CONSULTATION: Persistent nausea and vomiting. HISTORY OF PRESENT ILLNESS: Ms. Alexa Roldan is a very pleasant 22-year-old woman who was admitted to the hospital 4 days ago on 12/01/2017 with nausea, vomiting and bilateral flank pain. Crystal ayala was found to have nephrolithiasis and pyelonephritis. She has been treated with antibiotics. She has passed both of her kidney stones and her renal function has significantly improved; however, her nausea and vomiting have really not improved throughout this admission. She states that this actuall y started several days prior to her having developed the bilateral flank pain. The nausea is essenti ally constant, but worsened with eating or drinking anything. She has not been able to tolerate much , though she has been keeping water and jello down today. Her bilateral lower abdominal and lower fl ank pain also persists, though this has improved a bit. Aside from the nausea and vomiting, she also reports new constipation just over the past week with this presentation. She has not had a good bow el movement the past 7 days. This is unusual for her. She states she usually has a good bowel movem ent every 1-2 days. There has been no rectal bleeding. She has no chronic gastrointestinal complain ts until this current presentation. She has been tried on Zofran and Phenergan as well as Ativan, wh ich have all been essentially unsatisfactory and treating her symptoms. She had a recent negative pr egnancy test and has not been sexually active since that time. She had an abdominal x-ray, which guero wed essentially normal bowel gas pattern. Note her LFTs and lipase were normal on admission. She is set to get an abdominal ultrasound as well. REVIEW OF SYSTEMS: Full review of systems including constitutional, head, eyes, ears, nose, throat, GI, , cardiovascular, respiratory, musculoskeletal, and neurologic systems is negative except as no alycia in the HPI. She does report some dizziness, feeling like the room is spinning when she was getti ng up and walking the past couple of days; however, she does not relate this to her nausea. PAST MEDICAL HISTORY: Nephrolithiasis. PAST SURGICAL HISTORY: None. SOCIAL HISTORY: She is a current smoker. Alcohol use is occasional. No recreational drug use. FAMILY HISTORY: Her mother had renal cell carcinoma and nephrolithiasis as well as cholelithiasis. ALLERGIES: No known drug allergies. OUTPATIENT MEDICATIONS: Ibuprofen p.r.n. INPATIENT MEDICATIONS: Ceftriaxone IV, Lovenox subcu, Ativan, Zofran p.r.n., Protonix 40 mg IV daily , Phenergan p.r.n. and Fleet Enema today. PHYSICAL EXAMINATION: VITAL SIGNS: Temperature 97.9, pulse 58, blood pressure 139/85 and 98% oxygen saturation on room air . GENERAL: A 22-year-old woman lying in bed comfortably in no distress. SKIN: No jaundice, no rashes were palpable. EYES: No scleral icterus. Extraocular movements intact. ENT: Mucous membranes moist. No oral lesions. LYMPH: No submandibular or supraclavicular lymphadenopathy. THYROID: Nontender to palpation. HEART: Regular rate and rhythm. LUNGS: Clear to auscultation bilaterally. ABDOMEN: Nondistended. Bowel sounds are hypoactive throughout. The abdomen is soft. There is some tenderness to palpation in the right upper quadrant, but no guarding or rebound tenderness. No mass es or organomegaly appreciated. EXTREMITIES: No peripheral edema. VESSELS: Radial pulses 2+ bilaterally. NEUROLOGICAL: Cranial nerves II-XII intact bilaterally. No focal deficits. LABORATORY STUDIES: Sodium 145, potassium 3.3, BUN down to 10 and creatinine down to 1.06. Urine pr egnancy test negative on admission. WBC 10.6, hemoglobin 13.7 and platelets 203. IMAGING STUDIES: Abdominal plain film today shows normal bowel gas pattern. Renogram performed yest erday shows split function with equal function of both kidneys. CT of the abdomen and pelvis from demonstrated right-sided perinephric stranding in the calculus in the inferior pole of the l eft kidney. Noncontrast evaluation of liver, spleen, adrenal glands and gallbladder was unremarkable . ASSESSMENT AND PLAN: 1. Persistent nausea and vomiting. 2. Constipation. 3. Probable ileus. 4. Recent nephrolithiasis with pyelonephritis. I discussed a wide differential for nausea and vomit ing with the patient. Clinically, my suspicion would be highest for a low-grade ileus, which has dev eloped as a result of her nephrolithiasis and need for opiate pain medications upon presentation. We discussed other potential etiologies such as biliary etiology, though note liver function tests and lipase were normal. We will await results of abdominal ultrasound. Primary upper GI pathology shoul d be considered, so we will perform esophagogastroduodenoscopy tomorrow. The patient will be getting an enema today. If the ultrasound and the esophagogastroduodenoscopy are unremarkable, this would a ll be consistent with ileus. This had to resolve with supportive care. Could consider starting a ge ntle daily laxatives such as MiraLax 17 grams daily. Further recommendations following esophagogastroduodenoscopy tomorrow. Thanks for the consultation. Please call back with questions or concerns.
[2017-12-06] MEDS: Pantoprazole 40 MG VIAL IVP SCH ×2 (01:56→21:59)
[2017-12-06] MEDS: Sodium Chloride 0.9% 1,000 ML IV SCH ×5 (01:57→21:58)
[2017-12-06] MEDS: cefTRIAXone\\ROCEPHIN 1 GM, Syringe 0.4 ML in Sterile Water 9.6 ML SLOW IVP SCH (02:05)
--- NOTE | 2017-12-06 09:35 | PDOC.PN ---
- Subjective Encounter Start Date: 12/06/17 Encounter Start Time: 09:33 Ms. Roldan was seen today in follow-up. she say she is still hurting some. She does not fel she had an adequate bowel movement, but she did pass some stool yesterday. - Objective MAR Reviewed: Yes Vital Signs & Weight: Vital Signs (12 hours) Temp Pulse Resp BP 12/06/17 08:00 97.7 F 47 L 20 137/79 12/06/17 04:00 97.8 F 51 L 18 112/55 L Weight Admit Weight 212 lb 15.465 oz Weight 212 lb 15.465 oz I&O: 12/05/17 12/06/17 12/07/17 06:59 06:59 06:59 Intake Total 1400 Output Total 1500 Balance -100 Result Diagrams: 12/04/17 05:25 12/04/17 05:25 Phys Exam - Physical Examination HEENT: PERRLA Respiratory: no wheezing, no rales, no rhonchi, clear to auscultation bilateral Cardiovascular: RRR, no significant murmur Gastrointestinal: soft, positive bowel sounds + mild diffuse tenderness, no rebound or guarding Musculoskeletal: no edema Dx/Plan (1) Nephrolithiasis Status: Acute (2) Pyelonephritis Code(s): N12 - TUBULO-INTERSTITIAL NEPHRITIS, NOT SPCF ACUTE OR CHRONIC Status: Acute (3) Nausea & vomiting Code(s): R11.2 - NAUSEA WITH VOMITING, UNSPECIFIED Status: Acute (4) Acute kidney injury Code(s): N17.9 - ACUTE KIDNEY FAILURE, UNSPECIFIED Status: Acute - Plan * Abdominal pain and nausea- ? etiology, I suspect from constipation * She is to go for EGD this AM * Nephrolithiasis- resolved- she has passed the stone- continued follow-up as an outpatient * UTI- ruled out- can discontinue antibiotics..
[2017-12-06] MEDS: Enoxaparin Sodium 40 MG/0.4 ML SYRINGE SC SCH (09:40)
[2017-12-06] MEDS: Nicotine 21 MG PATCH TD SCH (09:42)
[2017-12-06] MEDS ORDERED: Propofol 200 MG/20 ML VIAL ONE (12:40)
[2017-12-06] MEDS ORDERED: Lidocaine 1% PF 5 ML VIAL ONE (12:40)
[2017-12-06] MEDS ORDERED: Morphine Sulfate 2 MG/ML SYRINGE SLOW IVP PRN (14:38)
[2017-12-06] MEDS ORDERED: Ondansetron HCl/PF 4 MG/2 ML Vial IVP PRN (14:38)
[2017-12-06] MEDS ORDERED: Promethazine HCl 25 MG/ML VIAL SLOW IVP PRN (14:38)
[2017-12-06] MEDS ORDERED: Promethazine HCl 25 MG/ML VIAL IM PRN (14:38)
[2017-12-06] MEDS ORDERED: Metoclopramide HCl 10 MG/2 ML VIAL IVP SCH (15:00)
[2017-12-06] MEDS: Metoclopramide HCl 10 MG/2 ML VIAL IVP SCH ×2 (16:00→21:59)
--- NOTE | 2017-12-06 21:38 | OP ---
PREPROCEDURE DIAGNOSES: Persistent nausea and vomiting. POSTPROCEDURE DIAGNOSES: Normal esophagogastroduodenoscopy with normal esophagus, stomach, and duode num, second, and third portions no changes of duodenal inflammation to suggest celiac, no evidence of esophagitis. No retained gastric contents. RECOMMENDATIONS: Low dose Reglan, advance diet, MiraLax p.r.n. ANESTHESIA: TIVA. PROCEDURE IN DETAIL: After the patient was informed of the risks, benefits, possible complications o f endoscopy including perforation, bleeding, reactions to medication and aspiration, informed consent was obtained. The patient was brought to endoscopy suite where she was prepped and draped in standa rd fashion. Once she was comfortable, a bite block was placed in incisural orifice. The endoscope w as advanced through the esophagus, stomach and second and third portion of duodenum and slowly remove d. There was good visualization of mucosa. There were no masses, lesions or arteriovenous malformat ions identified. The esophagus, stomach, and duodenum were normal to second and third portions. The re was no evidence of gastritis, erosions, erythema, retained gastric contents, esophagitis. The sco pe was removed. The patient tolerated the procedure well with no complications.
[2017-12-06] MEDS ORDERED: Sodium Chloride 0.9% 10 ML ONE (21:53)
[2017-12-07] MEDS: Metoclopramide HCl 10 MG/2 ML VIAL IVP SCH ×2 (04:35→11:19)
[2017-12-07 05:58] LABS: Anion Gap 12 mmol/L (10-20); BUN (Urea Nitrogen) 6 mg/dL (7.0-18.7); Calc. Creatinine Clearance 188 mL/min (70-130); Calcium 8.3 mg/dL (7.8-10.44); Carbon Dioxide 27 mmol/L (22-29); Chloride 106 mmol/L (98-107); Estimated GFR-MDRD Greater than 90; Glucose 94 mg/dL (70-105); Sodium 142 mmol/L (136-145)
[2017-12-07 06:12] LABS: Potassium 2.9 mmol/L (3.5-5.1)
[2017-12-07] MEDS: Potassium Chloride 20 MEQ TAB PO SCH ×2 (06:34→11:22)
[2017-12-07] MEDS: Sodium Chloride 0.9% 1,000 ML IV SCH (06:35)
[2017-12-07] MEDS: Enoxaparin Sodium 40 MG/0.4 ML SYRINGE SC SCH (09:14)
[2017-12-07] MEDS: Nicotine 21 MG PATCH TD SCH (09:15)
--- NOTE | 2017-12-07 10:45 | PDOC.PN ---
- Subjective Encounter Start Date: 12/07/17 Encounter Start Time: 08:50 Subjective: is tolerating liq diet -: no abd pain -: ambulating in room - Objective MAR Reviewed: Yes Vital Signs & Weight: Vital Signs (12 hours) Temp Pulse Resp BP 12/07/17 08:00 98.5 F 61 16 12/07/17 07:46 98.5 F 61 16 120/78 12/07/17 04:35 98.4 F 54 L 18 111/67 12/07/17 00:37 97.8 F 48 L 18 126/73 Weight Admit Weight 212 lb 15.465 oz Weight 212 lb 15.465 oz I&O: 12/06/17 12/07/17 12/08/17 06:59 06:59 06:59 Intake Total 2111 Balance 2111 Result Diagrams: 12/04/17 05:25 12/07/17 05:26 Phys Exam - Physical Examination HEENT: PERRLA, moist MMs Neck: no JVD, supple Respiratory: no wheezing, no rales Cardiovascular: RRR, no significant murmur Gastrointestinal: soft, non-tender, no distention, positive bowel sounds Musculoskeletal: no edema, pulses present Neurological: non-focal, moves all 4 limbs Psychiatric: A&O x 3 Dx/Plan (1) Hypokalemia Code(s): E87.6 - HYPOKALEMIA Status: Acute (2) Acute kidney injury Code(s): N17.9 - ACUTE KIDNEY FAILURE, UNSPECIFIED Status: Resolved (3) Nausea & vomiting Code(s): R11.2 - NAUSEA WITH VOMITING, UNSPECIFIED Status: Acute Comment: resolving (4) Nephrolithiasis Status: Resolved (5) Obesity (BMI 30-39.9) Code(s): E66.9 - OBESITY, UNSPECIFIED Status: Chronic - Plan oral regular diet this afternoon -: may dc home if she tolerates diet, EGD is normal -: kdur total of 4 doses on dc -: to f/u with PCP in 1 week -: to ambulate in hallway q2hrly * . Review of Systems - Medications/Allergies Allergies/Adverse Reactions: Allergies Allergy/AdvReac Type Severity Reaction Status Date / Time No Known Drug Allergies Allergy Verified 12/02/17 01:37 Medications: Current Medications Acetaminophen (Tylenol) 650 mg PO Q4H PRN PRN Reason: Headache/Fever or Pain Acetaminophen (Tylenol) 650 mg CA Q4H PRN PRN Reason: Headache/Fever or Pain Bisacodyl (Dulcolax) 10 mg PO DAILYPRN PRN PRN Reason: Constipation Enoxaparin Sodium (Lovenox) 40 mg SC 0900 [facility] Last Admin: 12/07/17 09:14 Dose: 40 mg Sodium Chloride (Normal Saline 0.9%) 1,000 mls @ 125 mls/hr IV .Q8H [facility] Last Admin: 12/07/17 06:35 Dose: 1,000 mls Lactulose (Lactulose) 20 gm PO DAILYPRN PRN PRN Reason: Constipation Lorazepam (Ativan) 1 mg SLOW IVP Q6H PRN PRN Reason: Anxiety/Agitation Last Admin: 12/02/17 11:24 Dose: 1 mg Magnesium Hydroxide (Milk Of Magnesium) 30 ml PO DAILYPRN PRN PRN Reason: Constipation Metoclopramide HCl (Reglan) 10 mg IVP Q6H [facility] Stop: 12/08/17 23:59 Last Admin: 12/07/17 04:35 Dose: 10 mg Nicotine (Nicoderm Patch) 21 mg TD DAILY [facility] Last Admin: 12/07/17 09:15 Dose: Not Given Ondansetron HCl (Zofran) 4 mg IVP Q6H PRN PRN Reason: Nausea/Vomiting Last Admin: 12/05/17 18:33 Dose: 4 mg Pantoprazole Sodium (Protonix) 40 mg PO DAILY [facility] Potassium Chloride (K-Dur) 40 meq PO Q6H [facility] Sodium Biphosphate/Sodium Phosphate (Fleet Enema) 133 ml CA ONE PRN PRN Reason: Constipation Stop: 12/12/17 14:52 Last Admin: 12/05/17 22:29 Dose: 133 ml
[2017-12-07 11:29] VITALS: BP 128/71; TEMP 99.4
[2017-12-07] MEDS ORDERED: Potassium Chloride 20 MEQ TAB PO SCH (12:00)
[2017-12-07] MEDS ORDERED: Potassium Chloride 20 MEQ TAB ONE (13:00)
--- NOTE | 2017-12-08 13:44 | DIS ---
DATE OF ADMISSION: 12/02/2017 DATE OF DISCHARGE: 12/07/2017 DISCHARGE DISPOSITION: To home. PRIMARY DISCHARGE DIAGNOSES: Intractable nausea and vomiting, resolved, hypokalemia, resolving; acut e kidney injury, resolved; nephrolithiasis, resolved with passage of stone, obesity. PROCEDURES DONE DURING HOSPITALIZATION: Abdominal and pelvic CAT scan done on the day of admission s howed mild right-sided perinephric stranding, which is likely due to recently passed stone, no hydrou reteronephrosis. There was a calculus in the inferior pole of left kidney. Nuclear medicine renal s can done showed normal split function with equal function of both kidneys. Abdominal ultrasound done showed no acute intraabdominal process, upper endoscopy done by Dr. Marquez on 12/06/2017 was normal. Blood cultures x2 no growth. Influenza A and B antigens were negative. H&H 13 and 40, platelet co unt 203. Urine test was negative. DISCHARGE MEDICATIONS: Protonix 40 mg p.o. daily for another 10 days, potassium chloride 40 mEq p.o. 4 times daily total of 4 doses only for hypokalemia. ALLERGIES: No known drug allergies. INPATIENT CONSULTS: Dr. Louise for Urology, Dr. Marquez for Gastroenterology. BRIEF COURSE DURING HOSPITALIZATION: Patient initially got admitted on the with complaints of na usea and vomiting. She also had a temperature of 101.9 degrees. The patient has history of kidney s tones in the past and had passed one of them recently. In view of her above-mentioned factors, the p jayla was admitted to medical floor. Also, her creatinine was 1.9 on the day of admission. She was gently hydrated. She was on empiric antibiotics due to possible pyelonephritis versus perinephric s tranding due to recently passed stone. Jeffrey cultures were obtained. She has had consultation with Dr Jamey Louise for Urology and Dr. Marquez/Dr. Bassam Sherman for Gastroenterology. Upper endoscopy was within normal limits. Her intractable nausea, vomiting has resolved and is tolerating oral solid food. Crystal ayala will be shortly discharged home. Patient needs to follow up with her primary care physician in 1 [place]. Please see a face to face documentation on [facility] for the day of discharge.
== END 2017-12-07 13:40 | disposition home or self-care (01) | DRG 694 ==
LOC: ERS 19:53 → 3SE 12-02 01:06 → OBSVTOIN 12-02 01:06 → 3SW 12-02 17:44
PROVIDERS: ADMIT Internal Medicine; ATTEND Internal Medicine
PROC: 0DJ08ZZ Inspection of Upper Intestinal Tract, Via Natural or Artificial Opening Endoscopic (ICD-10-PCS; principal; 2017-12-06)
DX: N20.0 Calculus of kidney (principal); N17.9 Acute kidney failure, unspecified; E66.9 Obesity, unspecified; E87.6 Hypokalemia; F17.210 Nicotine dependence, cigarettes, uncomplicated; Z68.30 Body mass index [BMI] 30.0-30.9, adult; K59.00 Constipation, unspecified
CPT/HCPCS: 36415; 71045; 74022; 74176; 76700; 78708; 80048; 80053; 81003; 81015; 81025; 82533; 82570; 83690; 84300; 84443; 85025; 87040; 87086; 90715; 96361; 96374; 96375; 96376; 99406; A4216; A4641; A9562; C9113; J0696; J1650; J1885; J2001; J2060; J2270; J2405; J2550; J2704; J2765; J3010; J3480; J7050

== ENCOUNTER 2019-06-18 17:31 | Inpatient (IN) | payer OTHER ==
[2019-06-18] MEDS ORDERED: Ondansetron PF 4 MG/2 ML Vial ONE ×2 (17:38→18:36)
[2019-06-18] MEDS ORDERED: Morphine 4 MG/ML VIAL ONE ×3 (17:50→18:36)
[2019-06-18 18:01] LABS: #Basophils 0.3 thou/uL (0.0-0.2); #Eosinphils 0.1 thou/uL (0.0-0.7); #Lymphocytes 2.3 thou/uL (1.20-3.40); #Monocytes 1.4 thou/uL (0.11-0.59); #Neutrophils 14.1 thou/uL (1.40-6.50); %Basophils 1.5 % (0.0-1.0); %Eosinophils 0.7 % (0.0-10.0); %Lymphocytes 12.7 % (21.0-51.0); %Monocytes 7.5 % (0.0-10.0); %Neutrophils 77.6 % (42.0-75.0); Hemoglobin 16.4 g/dL (12.0-16.0); Mean Corpuscular HGB CONC 34.3 g/dL (32.0-36.0); Mean Corpuscular Hemoglobin 32.1 pg (27.0-31.0); Mean Corpuscular Volume 93.6 fL (78.0-98.0); Mean Platelet Volume 8.3 fL (7.4-10.4); Platelet Count 246 thou/uL (130-400); RBC Distribution Width 10.9 % (11.5-14.5); Red Blood Cell (RBC) Count 5.12 mill/uL (4.20-5.40); White Blood Cell (WBC) Count 18.1 thou/uL (4.8-10.8)
[2019-06-18 18:11] LABS: BHCG - Serum Negative (NEGATIVE); Pregs Control Background? CLEAR/WHITE (CLR/WHITE); Pregs Control Bar Appear? YES (CONTROL BAR)
[2019-06-18 18:19] LABS: ALT (SGPT) 10 U/L (8-55); AST (SGOT) 16 U/L (5-34); Albumin 4.1 g/dL (3.5-5.0); Alkaline Phosphatase 53 U/L (40-150); Anion Gap 14 mmol/L (10-20); BUN (Urea Nitrogen) 17 mg/dL (7.0-18.7); Bilirubin, Total 0.8 mg/dL (0.2-1.2); CK (CPK) 61 U/L (29-168); Calc. Creatinine Clearance 0 mL/min (70-130); Calcium 9.5 mg/dL (7.8-10.44); Carbon Dioxide 24 mmol/L (22-29); Chloride 109 mmol/L (98-107); Estimated GFR-MDRD 63; Globulin 2.4 g/dL (2.4-3.5); Glucose 103 mg/dL (70-105); Lipase 21 U/L (8-78); Potassium 3.4 mmol/L (3.5-5.1); Protein, Total 6.5 g/dL (6.0-8.3); Sodium 144 mmol/L (136-145)
--- NOTE | 2019-06-18 19:20 | ULT ---
PELVIC ULTRASOUND: 06/18/19 Transabdominal and endovaginal ultrasound pelvis performed. INDICATIONS: Pelvic pain. The uterus has a normal sonographic appearance. Uterine size is normal. The endometrial stripe is nor mal measured at 4 mm. The right ovary is identified and appears unremarkable. Color Doppler and spect ral analysis demonstrates blood flow to the right ovary. The left ovary is not identified. No free fluid. IMPRESSION: The left ovary is not identified. The pelvic ultrasound is otherwise unremarkable. POS: [facility]
--- NOTE | 2019-06-18 19:32 | CT ---
CT ABDOMEN AND PELVIS WITHOUT IV CONTRAST: 06/18/19 INDICATIONS: Abdominal pain and nausea. COMPARISON: CT abdomen and pelvis 12/01/17. Lung bases clear. Liver, spleen, pancreas unremarkable. Stomach unremarkable. Adrenal glands normal. Kidneys unremarkable. Tiny calcification inferior pole of the left kidney is again seen and is unchan ged from prior exam. No hydronephrosis. No evidence of ureteral calculus. Urinary bladder unremarkabl e. Small bowel loops normal. Appendix appears normal. Colon unremarkable. Pelvic structures unremarkable. Both ovaries appear unremarkable. No adenopathy. IMPRESSION: No evidence of acute process. POS: [facility]
[2019-06-18 19:49] LABS: Bilirubin Negative (Negative); Blood, Urine Moderate (Negative); Clarity Slightly Cloudy (Clear); Glucose, Urine (Dipstick) Negative (Negative); Leukocyte Trace (Negative); Nitrite Negative (Negative); Protein, Urine (Dipstick) 100 mg/dL (Neg-Trace); Urobilinogen 0.2 mg/dL (Less than 2)
[2019-06-18 19:55] LABS: Bacteria/HPF 1+ HPF (None Seen)
[2019-06-18] MEDS ORDERED: Metoclopramide HCl 10 MG/2 ML VIAL ONE (20:19)
[2019-06-18 22:29] VITALS: BMI 31.8
[2019-06-18] MEDS ORDERED: Ondansetron PF 4 MG/2 ML Vial IVP PRN (22:31)
[2019-06-18] MEDS ORDERED: Dextrose 5 %-0.45 % NaCl 1,000 ML IV SCH (22:45)
--- NOTE | 2019-06-19 00:38 | PDOC.FPRHP ---
- History of Present Illness Chief Complaint: Abdominal Pain, Flank Pain History of Present Illness: Alexa Roldan is a 23 yo female who presented with abdominal and flank pain. The pain is a burning, quick onset this morning, and within a couple of hours became nauseated with episodes of emesis. Pain is worse with movement. Pain starts in her lower abdomen and radiates to her flanks bilaterally but worse on right. She went [facility] ER where she was found to have trichomoniasis, negative test, CT abdomen/pelvis and U/S WNL. She denied vaginal bleeding, urinary changes, change in diet. She endorsed fever, chills, dizziness, lightheadedness. She has history of UTI's and "kidney infection". She has irregular menstrual cycles and is unsure of her LMP. She has history of HPV but denied other STD's. Of note she stopped taking bupropion for Bipolar/Depression 1-2 weeks ago. PCP: [facility] ED Course: Direct admit from [facility] - Allergies/Adverse Reactions Allergies Allergy/AdvReac Type Severity Reaction Status Date / Time No Known Drug Allergies Allergy Verified 06/18/19 22:42 - Home Medications Medication Instructions Recorded Confirmed Type No Known 06/19/19 06/19/19 History - History PMHx: Bipolar, UTI, pyelo PSHx: None FHx: None Social: 1ppd smoker, no drugs, alcohol once a month - Review of Systems General: reports: fever/chills, weight/appetite/sleep changes, fatigue Respiratory: denies: cough, shortness of breath Gastrointestinal: reports: nausea, vomiting, abdominal pain. denies: diarrhea, constipation, GI bleeding Genitourinary: denies: incontinence, dysuria, discharge Skin: denies: rashes Musculoskeletal: reports: other (flank) Neurological: denies: weakness - Vital signs BP: [121/56] HR: [61] RR: [20] Tmax: [98.5] Pox: [100]% on [room air] Wt: [] - Physical Exam Constitutional: other (Mild distres 2/2 to pain) -Constitutional: Lying in bed appearing uncomfortable HEENT: EOMI, conjunctiva clear Neck: supple, trachea midline Heart: RRR, normal S1/S2, pulses present, no edema Lungs: CTAB, no respiratory distress, good air movement Abdomen: soft, bowel sounds present, no masses/distention -Abdomen: tender in lower quadrants, did not appear tender in upper quadrants, CVA tenderness bilateral. Negative rosvings and rebound tenderness, no peritoneal signs. Neurological: no focal deficit, CN II-XII intact Skin: no rash/lesions Heme/Lymphatic: no purpura, no petechia FMR H&P: Results - Labs Result Diagrams: 06/19/19 05:47 06/19/19 05:47 Lab results: WBC 18.1 thou/uL (4.8-10.8) H 06/18/19 17:50 Hgb 16.4 g/dL (12.0-16.0) H 06/18/19 17:50 Hct 47.9 % (36.0-47.0) H 06/18/19 17:50 MCV 93.6 fL (78.0-98.0) 06/18/19 17:50 Plt Count 246 thou/uL (130-400) 06/18/19 17:50 Neutrophils % 77.6 % (42.0-75.0) H 06/18/19 17:50 Sodium 144 mmol/L (136-145) 06/18/19 17:50 Potassium 3.4 mmol/L (3.5-5.1) L 06/18/19 17:50 Chloride 109 mmol/L (98-107) H 06/18/19 17:50 Carbon Dioxide 24 mmol/L (22-29) 06/18/19 17:50 BUN 17 mg/dL (7.0-18.7) 06/18/19 17:50 Creatinine 1.08 mg/dL (0.6-1.1) 06/18/19 17:50 Glucose 103 mg/dL (70-105) 06/18/19 17:50 Lactic Acid 1.4 mmol/L (0.5-2.2) 06/18/19 17:50 Calcium 9.5 mg/dL (7.8-10.44) 06/18/19 17:50 Total Bilirubin 0.8 mg/dL (0.2-1.2) 06/18/19 17:50 AST 16 U/L (5-34) 06/18/19 17:50 ALT 10 U/L (8-55) 06/18/19 17:50 Alkaline Phosphatase 53 U/L (40-150) 06/18/19 17:50 Creatine Kinase 61 U/L (29-168) 06/18/19 17:50 Serum Total Protein 6.5 g/dL (6.0-8.3) 06/18/19 17:50 Albumin 4.1 g/dL (3.5-5.0) 06/18/19 17:50 Lipase 21 U/L (8-78) 06/18/19 17:50 Urine Ketones Negative mg/dL (Negative) 06/18/19 19:40 Urine Blood Moderate (Negative) A 06/18/19 19:40 Urine Nitrite Negative (Negative) 06/18/19 19:40 Ur Leukocyte Esterase Trace (Negative) H 06/18/19 19:40 Urine RBC 4-6 HPF (0-3) A 06/18/19 19:40 Urine WBC 4-6 HPF (0-3) A 06/18/19 19:40 Ur Squamous Epith Cells 4-6 HPF (0-3) A 06/18/19 19:40 Urine Bacteria 1+ HPF (None Seen) 06/18/19 19:40 FMR H&P: A/P - Problem List (1) Pelvic inflammatory disease Current Visit: Yes Status: Acute Code(s): N73.9 - FEMALE PELVIC INFLAMMATORY DISEASE, UNSPECIFIED (2) Nausea & vomiting Current Visit: No Status: Acute Code(s): R11.2 - NAUSEA WITH VOMITING, UNSPECIFIED Comment: resolving (3) Trichomoniasis Current Visit: Yes Status: Acute - Plan # Abdominal Pain likely secondary to Pelvic Inflammatory Disease UA revealed. Pelvic U/S, CT abdomen/pelvis did not show appendicitis/stones/ acute process. Denies high risk sexual activity. Negative rosving's, rebound tenderness, RUQ tenderness. She states hx of kidney infxn and UTI's. - procalcitonin - doxycycline 100 mg IV q12, cefoxitin 2 gm IV q6h, metronidazole 500 mg IV q12h - Urine culture pending - HIV, RPR in am # N/V - prn zofran - monitor PO intake, start 120 mls/hr NS # Bipolar Currently stopped taking bupropion 1-2 weeks ago. Denies needing little sleep, spending money, risky sexual behavior. - held restarting bupropion. follow up as outpt. # Tobacco Use 1 ppd for 5-6 years - prn nicotine patch VTE prophylaxis: Not indicated Diet: No restrictions Fluids: 120 mls/hr NS FMR H&P: Upper Level - Pertinent history 23 year old female with history of bipolar disorder off of meds for last several weeks presents with sudden onset abdominal and bilateral flank pain since 7:00 AM this morning. Patient reports a "burning" sensation in lower abdomen and bilateral flanks which is improved when lying still. Patient was seen at [facility] where there was initial concern for appendicitis. CT abdomen/pelvis without contrast was negative for appendicitis. No acute findings were apparent. Pelvic exam was performed at outside ED. Patient reportedly without cervical motion tenderness. VP3 did show trichomonas. GC/CT still pending. Patient reports no prior history of STD's. Patient reports no dysuria. Patient does report history of UTI's and kidney infections in the past. She also reports being HPV positive. - Pertinent findings General: Alert and oriented x3. Mild distress with movement. HEENT: MMM, EOMI Card: RRR, No murmurs Resp: Clear to auscultation bilaterally. No acute respiratory distress. Abdomen: TTP in right and left lower quadrants with deep palpation, no rebound. Bilateral flank pain. Ext: No edema - Plan Date/Time: 06/19/19 0025 I, Jeaneth Poe, have evaluated this patient and agree with findings/plan as outlined by newsroom intern resident. Pertinent changes/additions are listed here. Suspect PID - VP3 positive for trichomonas - UA with WBC's, but likely contaminate. Will send for urine culture - GC/CT pending - Pelvic exam at outside facility reportedly with no CMT. However, patient with significant abdominal pain not otherwise explained - Start cefoxitin (06/18) and Doxycycline (06/18) until clinical improvement - IVF - Schedule ibuprofen for pain - CT abdomen/pelvis negative; appendix well visualized Trichomonas vaginitis - Treat with Flagyl (06/18) BID for 7 days Bipolar disorder - Patient has not taken welbutrin in several weeks, so will hold at this time - No reported manic episodes DVT ppx: SCD's Code status: Full Dispo: Medical observation. Addendum - Attending - Attending Attestation Date/Time: 06/19/19 0100 I personally evaluated the patient and discussed the management with resident team I agree with the History, Examination, Assessment and Plan documented above with any addition or exceptions noted below. 23 yo G0 female with hx of bipolar d/o presents for persistent abdominal pain and N/V. Patient seen at outside facility. Workup essentially negative. Reports abdominal pain x 1 day. Radiates to flank. Worse with movement. Hard to get comfortable. No previous episodes. Multiple N/V episodes. One episode of diarrhea. Positive fever and chills. One episode of dizziness today. No known sick contacts or food exposure. Reports recent unprotected intercourse. Irregular menses. No reported dysuria, hematuria, or vaginal discharge. States pain is 8 to 10 out of 10. Not able to tolerate PO intake. Pain at times is described as burning but patient reports its so bad its hard to describe. Vitals, labs, imaging, record reviewed. Agree with PE as documented. Pelvic exam not repeated. Spoke with provider from outside facility. Will obs overnight. Acute gastroenteritis vs PID. Due to age and history along with STI and leukos on UA will treat for PID. Start with IV medication and transition to oral when able to tolerate PO. ALAN antiemetics. Start H2 incase atypical presentation. Trend labs in AM. Per
[2019-06-19] MEDS: Sodium Chloride 0.9% 1,000 ML IV SCH ×3 (01:15→14:52)
[2019-06-19] MEDS: Ketorolac Tromethamine 30 MG/ML VIAL IVP PRN ×3 (01:16→18:27)
[2019-06-19] MEDS: metroNIDAZOLE 500 MG in Premix Bag 1 BAG IVPB SCH ×2 (04:21→17:10)
[2019-06-19] MEDS ORDERED: cefOXitin 2 GM in Sodium Chloride 0.9% 100 ML IVPB SCH (06:00)
[2019-06-19 06:11] LABS: #Eosinphils 0.1 thou/uL (0.0-0.7); #Lymphocytes 2.7 thou/uL (1.20-3.40); #Monocytes 1.3 thou/uL (0.11-0.59); #Neutrophils 7.4 thou/uL (1.40-6.50); %Basophils 0.4 % (0.0-1.0); %Lymphocytes 23.3 % (21.0-51.0); %Monocytes 10.9 % (0.0-10.0); %Neutrophils 64.4 % (42.0-75.0); Hemoglobin 13.8 g/dL (12.0-16.0); Mean Corpuscular HGB CONC 32.6 g/dL (32.0-36.0); Mean Corpuscular Hemoglobin 31.1 pg (27.0-31.0); Mean Corpuscular Volume 95.2 fL (78.0-98.0); Mean Platelet Volume 8.1 fL (7.4-10.4); Platelet Count 188 thou/uL (130-400); RBC Distribution Width 11.3 % (11.5-14.5); Red Blood Cell (RBC) Count 4.44 mill/uL (4.20-5.40); White Blood Cell (WBC) Count 11.6 thou/uL (4.8-10.8)
[2019-06-19 06:35] LABS: ALT (SGPT) Less than 7 U/L (8-55); AST (SGOT) 14 U/L (5-34); Albumin 3.4 g/dL (3.5-5.0); Alkaline Phosphatase 43 U/L (40-150); Anion Gap 11 mmol/L (10-20); BUN (Urea Nitrogen) 12 mg/dL (7.0-18.7); Bilirubin, Total 0.7 mg/dL (0.2-1.2); Calc. Creatinine Clearance 106 mL/min (70-130); Calcium 8.5 mg/dL (7.8-10.44); Carbon Dioxide 24 mmol/L (22-29); Chloride 108 mmol/L (98-107); Estimated GFR-MDRD 62; Globulin 1.9 g/dL (2.4-3.5); Glucose 98 mg/dL (70-105); Potassium 3.5 mmol/L (3.5-5.1); Protein, Total 5.3 g/dL (6.0-8.3); Sodium 139 mmol/L (136-145)
[2019-06-19] MEDS: Ibuprofen 800 MG TAB PO SCH ×3 (06:44→20:44)
[2019-06-19 06:53] LABS: Syphilis Antibody Nonreactive (Nonreactive); Syphilis Antibody Index 0.04 S/CO (<1.00 Non-Reactive)
[2019-06-19] MEDS: Famotidine/PF 20 mg/2ml Vial SLOW IVP SCH ×2 (08:24→20:44)
[2019-06-19] MEDS ORDERED: Doxycycline 100 MG in Syringe 0 ML IVPB SCH (09:00)
[2019-06-19] MEDS ORDERED: metroNIDAZOLE 500 MG in Syringe 0 ML IVPB SCH (09:00)
[2019-06-19] MEDS ORDERED: Famotidine/PF 20 mg/2ml Vial SLOW IVP SCH (09:00)
[2019-06-19] MEDS ORDERED: Famotidine 20 MG TAB PO SCH (09:00)
[2019-06-19] MEDS: cefOXitin Sodium/Dextrose,Iso 2 GM in Premix Bag 1 BAG IVPB SCH ×2 (12:00→18:27)
[2019-06-19] MEDS: Ondansetron ODT 4 MG TAB PO PRN (14:45)
--- NOTE | 2019-06-19 16:01 | PDOC.FM ---
- Subjective Subjective: Emesis x1, feeling nauseous. Abd pain has improved. No other complaints at this time, wants to try eating - Objective Vital Signs & Weight: Vital Signs (12 hours) Temp Pulse Resp BP Pulse Ox 06/19/19 11:36 97.7 F 58 L 16 99/57 L 98 06/19/19 07:48 98.3 F 66 16 106/68 98 06/19/19 05:00 98.6 F 75 20 115/74 98 Weight Admit Weight 84.028 kg Weight 84.028 kg Result Diagrams: 06/20/19 07:35 06/20/19 07:35 Phys Exam - Physical Examination Constitutional: NAD HEENT: PERRLA, moist MMs, sclera anicteric Neck: full ROM Respiratory: no wheezing, clear to auscultation bilateral Cardiovascular: RRR, no significant murmur Gastrointestinal: soft, positive bowel sounds mildly tender to palpation in RLQ and LLQ b/l Musculoskeletal: no edema, pulses present Neurological: non-focal, moves all 4 limbs Psychiatric: normal affect, A&O x 3 Skin: cap refill <2 seconds Dx/Plan (1) Pelvic inflammatory disease Code(s): N73.9 - FEMALE PELVIC INFLAMMATORY DISEASE, UNSPECIFIED Status: Acute (2) Trichomoniasis Status: Acute (3) Hypokalemia Code(s): E87.6 - HYPOKALEMIA Status: Acute (4) Obesity (BMI 30-39.9) Code(s): E66.9 - OBESITY, UNSPECIFIED Status: Chronic - Plan Plan: #Suspect PID - VP3 positive for trichomonas - UA with WBC's, but likely contaminate pending urine culture, no urinary sxs - GC/CT pending - RPR neg, HIV pending - Pelvic exam at outside facility reportedly with no CMT. However, patient with significant abdominal pain not otherwise explained -Continue cefoxitin (06/18) and Doxycycline (06/18) until clinical improvement -When can tolerate PO will switch to doxycycline and flagyl for 14 day course - Schedule ibuprofen for pain - CT abdomen/pelvis negative; appendix well visualized #Trichomonas vaginitis - Continue Flagyl (06/18) BID for 7 days #Bipolar disorder - Patient has not taken welbutrin in several weeks, so will hold at this time - No reported manic episodes DVT ppx: SCD's Code status: Full Dispo: Medical observation. Discussed w/ Dr. Philip Addendum - Attending - Attending Attestation Date/Time: 06/20/19 3558 I personally evaluated the patient and discussed the management with Dr. Morales. I agree with the History, Examination, Assessment and Plan documented above with any addition or exceptions noted below.
--- NOTE | 2019-06-19 21:48 | PDOC.EVN ---
Event Note - Event Note Event Note: Pt had 1 episode of emesis around noon today. Since then has been doing well. States that she is tolerating fluids progressively and has tried some grapes without any N/V. Will DC fluids. Pt denies any reflux sx, has pantoprazole and famotidine orders, will DC fomotidine and keep PPI available.
[2019-06-20] MEDS: cefOXitin Sodium/Dextrose,Iso 2 GM in Premix Bag 1 BAG IVPB SCH ×3 (00:27→12:19)
[2019-06-20] MEDS: Acetaminophen 325 MG TAB PO PRN ×2 (04:19→22:19)
[2019-06-20] MEDS: Ondansetron ODT 4 MG TAB PO PRN ×2 (04:19→08:37)
[2019-06-20] MEDS: metroNIDAZOLE 500 MG in Premix Bag 1 BAG IVPB SCH ×2 (04:20→15:20)
[2019-06-20] MEDS: Ibuprofen 800 MG TAB PO SCH (04:44)
--- NOTE | 2019-06-20 06:39 | PDOC.FM ---
- Subjective Subjective: Pt with emesis x2 yesterday. Still feeling nauseous but able to keep down lunch. No fevers. Abd pain present but improved. - Objective MAR Reviewed: Yes Vital Signs & Weight: Vital Signs (12 hours) Temp Pulse Resp BP Pulse Ox 06/20/19 04:00 98.0 F 63 20 98/65 100 06/19/19 19:52 98.0 F 53 L 20 110/72 98 Weight Admit Weight 84.028 kg Weight 84.028 kg I&O: 06/18/19 06/19/19 06/20/19 06:59 06:59 06:59 Intake Total 1240 Output Total 900 Balance 340 Result Diagrams: 06/20/19 07:35 06/20/19 07:35 Phys Exam - Physical Examination Constitutional: NAD HEENT: PERRLA, moist MMs Respiratory: no wheezing, clear to auscultation bilateral Cardiovascular: RRR, no significant murmur Gastrointestinal: soft mildly TTP in lower quadrants, hypoactive BS Musculoskeletal: no edema Psychiatric: normal affect, A&O x 3 Skin: cap refill <2 seconds Dx/Plan (1) Pelvic inflammatory disease Code(s): N73.9 - FEMALE PELVIC INFLAMMATORY DISEASE, UNSPECIFIED Status: Acute (2) Trichomoniasis Status: Acute (3) Hypokalemia Code(s): E87.6 - HYPOKALEMIA Status: Acute (4) Obesity (BMI 30-39.9) Code(s): E66.9 - OBESITY, UNSPECIFIED Status: Chronic - Plan Plan: #Suspect PID - VP3 positive for trichomonas - UA with WBC's, but likely contaminate pending urine culture, no urinary sxs - GC/CT pending, RPR neg, HIV pending - Pelvic exam at outside facility reportedly with no CMT. However, patient with significant abdominal pain not otherwise explained -Continue cefoxitin (06/18) and Doxycycline (06/18) until clinical improvement -When can tolerate PO will switch to doxycycline and flagyl for 14 day course - tylenol, d/c motrin - CT abdomen/pelvis negative; appendix well visualized #N/V -2/2 to above -sxatic support -monitor lytes -inc zofran dose, will try one time dose of phenergan #Trichomonas vaginitis - Continue Flagyl (06/18) BID for 7 days #Bipolar disorder - Patient has not taken welbutrin in several weeks, so will hold at this time - No reported manic episodes DVT ppx: SCD's Code status: Full Dispo: Medical observation. Discussed w/ Dr. Philip Addendum - Attending - Attending Attestation Date/Time: 06/20/19 4069 I personally evaluated the patient and discussed the management with Dr. Morales. I agree with the History, Examination, Assessment and Plan documented above with any addition or exceptions noted below. Continue antibiotics, await studies. CT and labs so far negative. Will continue to monitor closely.
[2019-06-20 06:59] LABS: HIV (1/2) Antibody/Antigen Non-Reactive (NonReactive); HIV 1/2 INDEX 0.08 S/CO (<1.00)
[2019-06-20 07:48] LABS: #Basophils 0.1 thou/uL (0.0-0.2); #Eosinphils 0.2 thou/uL (0.0-0.7); #Lymphocytes 2.8 thou/uL (1.20-3.40); #Monocytes 1.1 thou/uL (0.11-0.59); #Neutrophils 8.1 thou/uL (1.40-6.50); %Basophils 0.5 % (0.0-1.0); %Eosinophils 1.3 % (0.0-10.0); %Lymphocytes 23.1 % (21.0-51.0); %Monocytes 8.6 % (0.0-10.0); %Neutrophils 66.4 % (42.0-75.0); Hemoglobin 14.3 g/dL (12.0-16.0); Mean Corpuscular HGB CONC 34.4 g/dL (32.0-36.0); Mean Corpuscular Hemoglobin 32.7 pg (27.0-31.0); Mean Corpuscular Volume 95.1 fL (78.0-98.0); Mean Platelet Volume 8.2 fL (7.4-10.4); Platelet Count 173 thou/uL (130-400); RBC Distribution Width 11.1 % (11.5-14.5); Red Blood Cell (RBC) Count 4.36 mill/uL (4.20-5.40); White Blood Cell (WBC) Count 12.2 thou/uL (4.8-10.8)
[2019-06-20 08:05] LABS: Anion Gap 12 mmol/L (10-20); BUN (Urea Nitrogen) 9 mg/dL (7.0-18.7); Calc. Creatinine Clearance 87 mL/min (70-130); Calcium 9.1 mg/dL (7.8-10.44); Carbon Dioxide 24 mmol/L (22-29); Chloride 110 mmol/L (98-107); Estimated GFR-MDRD 49; Glucose 88 mg/dL (70-105); Potassium 3.7 mmol/L (3.5-5.1); Sodium 142 mmol/L (136-145)
[2019-06-20 09:38] LABS: Magnesium 1.9 mg/dL (1.6-2.6); Phosphorus 3.9 mg/dL (2.3-4.7)
[2019-06-20] MEDS: Polyethylene Glycol 3350 17 GM Packet PO SCH (09:47)
[2019-06-20] MEDS: Dicyclomine 10 MG CAP PO SCH ×4 (09:49→22:09)
[2019-06-20] MEDS ORDERED: Promethazine HCl 25 MG/ML VIAL IM/IV PRN (09:49)
[2019-06-20] MEDS: Ondansetron ODT 8 MG TAB SL SCH ×2 (13:25→22:13)
[2019-06-20 16:22] LABS: PTT 27.7 SEC (22.9-36.1); Prothrombin Time 13.6 SEC (12.0-14.7)
[2019-06-20] MEDS ORDERED: cefOXitin 2 GM in Sodium Chloride 0.9% 100 ML IVPB SCH (18:00)
[2019-06-20] MEDS: cefOXitin 2 GM in Sodium Chloride 0.9% 100 ML IVPB SCH (18:41)
[2019-06-20 23:05] LABS: Chlamydia by PCR Not Detected (NotDetected); GC by PCR Not Detected (NotDetected)
[2019-06-21] MEDS: cefOXitin 2 GM in Sodium Chloride 0.9% 100 ML IVPB SCH ×2 (02:09→06:40)
[2019-06-21] MEDS ORDERED: metroNIDAZOLE 500 MG TAB PO SCH ×2 (03:45→18:00)
[2019-06-21] MEDS ORDERED: Doxycycline 100 MG CAP PO SCH ×2 (03:45→18:00)
[2019-06-21] MEDS: metroNIDAZOLE 500 MG in Premix Bag 1 BAG IVPB SCH (04:34)
[2019-06-21] MEDS: Ondansetron ODT 8 MG TAB SL SCH (06:43)
--- NOTE | 2019-06-21 06:53 | PDOC.FM ---
- Subjective Subjective: able to tolerate PO, no further emesis, abd pain improved. feels better. ready to go home. - Objective Vital Signs & Weight: Vital Signs (12 hours) Temp Pulse Resp BP Pulse Ox 06/21/19 04:20 98.6 F 67 20 100/69 06/21/19 02:10 98.9 F 52 L 20 110/77 06/20/19 20:35 98.6 F 44 L 20 109/73 96 Weight Admit Weight 84.028 kg Weight 84.028 kg I&O: 06/19/19 06/20/19 06/21/19 06:59 06:59 06:59 Intake Total 1240 320 Output Total 900 Balance 340 320 Result Diagrams: 06/21/19 08:08 06/21/19 08:08 Phys Exam - Physical Examination Constitutional: NAD HEENT: PERRLA, moist MMs Respiratory: no wheezing, clear to auscultation bilateral Cardiovascular: RRR, no significant murmur Gastrointestinal: soft, non-tender, positive bowel sounds Neurological: non-focal, moves all 4 limbs Psychiatric: normal affect, A&O x 3 Dx/Plan (1) Pelvic inflammatory disease Code(s): N73.9 - FEMALE PELVIC INFLAMMATORY DISEASE, UNSPECIFIED Status: Acute (2) Trichomoniasis Status: Acute (3) Hypokalemia Code(s): E87.6 - HYPOKALEMIA Status: Acute (4) Obesity (BMI 30-39.9) Code(s): E66.9 - OBESITY, UNSPECIFIED Status: Chronic - Plan Plan: #Suspect PID - VP3 positive for trichomonas - UA with WBC's, but likely contaminate pending urine culture, no urinary sxs - GC/CT pending, RPR neg, HIV pending - tolerated PO abx, d/c with 14 day course total today - provided counseling on having partners tested, re-infection #Hypokalemia -3.4 -PO replacement x1 #VLADISLAV, improved -creatinine downtrending #Trichomonas vaginitis - Continue Flagyl (06/18) #Asx bradycardia -will f/u outpt #Bipolar disorder - Patient has not taken welbutrin in several weeks, so will hold at this time - No reported manic episodes DVT ppx: SCD's Code status: Full Dispo: d/c to home today Discussed w/ Dr. Philip Addendum - Attending - Attending Attestation Date/Time: 06/21/19 4427 I personally evaluated the patient and discussed the management with Dr. Morales. I agree with the History, Examination, Assessment and Plan documented above with any addition or exceptions noted below.
[2019-06-21] MEDS: Polyethylene Glycol 3350 17 GM Packet PO SCH (07:56)
[2019-06-21] MEDS: Dicyclomine 10 MG CAP PO SCH (07:56)
[2019-06-21 08:15] LABS: #Basophils 0.1 thou/uL (0.0-0.2); #Eosinphils 0.3 thou/uL (0.0-0.7); #Monocytes 0.9 thou/uL (0.11-0.59); #Neutrophils 5.7 thou/uL (1.40-6.50); %Basophils 0.7 % (0.0-1.0); %Eosinophils 2.8 % (0.0-10.0); %Lymphocytes 30.4 % (21.0-51.0); %Monocytes 9.1 % (0.0-10.0); Hemoglobin 13.2 g/dL (12.0-16.0); Mean Corpuscular HGB CONC 33.9 g/dL (32.0-36.0); Mean Corpuscular Hemoglobin 32.2 pg (27.0-31.0); Mean Corpuscular Volume 94.7 fL (78.0-98.0); Mean Platelet Volume 8.2 fL (7.4-10.4); Platelet Count 166 thou/uL (130-400); RBC Distribution Width 11.2 % (11.5-14.5); White Blood Cell (WBC) Count 9.9 thou/uL (4.8-10.8)
[2019-06-21 08:41] LABS: Anion Gap 10 mmol/L (10-20); BUN (Urea Nitrogen) 7 mg/dL (7.0-18.7); Calc. Creatinine Clearance 105 mL/min (70-130); Calcium 8.8 mg/dL (7.8-10.44); Carbon Dioxide 25 mmol/L (22-29); Chloride 110 mmol/L (98-107); Estimated GFR-MDRD 61; Glucose 92 mg/dL (70-105); Potassium 3.4 mmol/L (3.5-5.1); Sodium 142 mmol/L (136-145)
[2019-06-21] MEDS ORDERED: Potassium Chloride 20 MEQ TAB PO SCH (09:00)
[2019-06-21 11:37] VITALS: BP 96/55; TEMP 98.4
--- NOTE | 2019-06-22 03:48 | DIS ---
DATE OF ADMISSION: 06/18/2019 DATE OF DISCHARGE: 06/21/2019 ADMITTING ATTENDING: Flor Sesay MD DISCHARGE ATTENDING: Kaveh Philip MD CONSULTS: None. IMAGIN. Pelvic ultrasound: Unremarkable. 2. Abdomen and pelvis CT: No evidence of acute processes. PRIMARY DIAGNOSES: 1. Pelvic inflammatory disease likely secondary to Trichomonas. 2. Trichomonas vaginitis. 3. Acute kidney injury. 4. Nausea and vomiting secondary to above. SECONDARY DIAGNOSES: 1. Asymptomatic bradycardia. 2. Bipolar disorder. DISCHARGE MEDICATIONS: 1. Tylenol. 2. Bentyl 10 mg p.o. q.i.d. 3. Zofran 8 mg sublingual q.8 hours p.r.n. for nausea. 4. Protonix 40 mg p.o. daily. 5. MiraLAX 17 g p.o. daily. 6. Doxycycline 100 mg p.o. b.i.d. 7. Flagyl 500 mg p.o. b.i.d. for 2 weeks' duration. DISCONTINUED MEDICATIONS: None. HISTORY OF PRESENT ILLNESS/HOSPITAL COURSE: Ms. Alexa Roldan is a 23-year-old female with bipolar disorder, who presented to the ER for nausea and vomiting, abdominal pain and flank pain. She has a history of renal stones. She underwent CT abdomen and pelvis, and pelvic ultrasound which were essentially normal. She tested positive for trichomoniasis and was thus admitted for IV antibiotics for suspected pelvic inflammatory disease. GCC was negative. She received antibiotics including cefotaxime, Flagyl, and doxycycline to empirically cover. Over the next few days, she clinically improved, was able to tolerate p.o., and her abdominal pain improved overall. She did experience mild VLADISLAV, which could be secondary to cefotaxime possibly altering creatinine lab values or her emesis episodes. Education was provided and recommendations to have partner tested and treated. She was also educated in regard to complications of untreated pelvic inflammatory disease. She was given specific instructions to continue antibiotics for 2 weeks duration and follow up with PCP to get retested in a few weeks. Asymptomatic bradycardia: The patient had pulses in the 50s to 60s, however, was asymptomatic. She was advised to continue outpatient workup. Bipolar disorder: The patient has not taken Wellbutrin in several weeks, so we held at that time. She has not experienced any manic episodes. Please follow up with PCP. DISPOSITION: Stable. DISCHARGE INSTRUCTIONS: 1. Location: Home. 2. Diet: Regular diet. 3. Activity: Ad caroline as tolerated. 4. Followup: Please follow up with Dr. Flores in 3-5 days. Please follow up for retesting. Please follow up for asymptomatic bradycardia. Job ID: [id number] MTDD
== END 2019-06-21 12:45 | disposition home or self-care (01) | DRG 758 ==
LOC: SCSER 17:31 → OBSVTOIN 20:40 → 2SW 20:40 → 3SE 06-20 15:29
PROVIDERS: ADMIT Student in an Organized Health Care Education/Training Program; ATTEND Student in an Organized Health Care Education/Training Program
DX: A59.01 Trichomonal vulvovaginitis (principal); N17.9 Acute kidney failure, unspecified; E87.6 Hypokalemia; E66.9 Obesity, unspecified; F31.9 Bipolar disorder, unspecified; F17.210 Nicotine dependence, cigarettes, uncomplicated; Z68.31 Body mass index [BMI] 31.0-31.9, adult
CPT/HCPCS: 36415; 74176; 76856; 80048; 80053; 81003; 81015; 82550; 83605; 83690; 83735; 84100; 84145; 84703; 85025; 85610; 85652; 85730; 86780; 87086; 87389; 87480; 87491; 87510; 87591; 87660; 96361; 96365; 96375; 96376; J0694; J1885; J2270; J2405; J2765; J3490; Q0162; S0028

== ENCOUNTER 2019-09-22 11:06 | Emergency (ER) | payer OTHER ==
[2019-09-22] MEDS ORDERED: Ondansetron PF 4 MG/2 ML Vial ONE ×2 (11:29→12:21)
[2019-09-22 11:43] LABS: #Basophils 0.1 thou/uL (0.0-0.2); #Eosinphils 0.2 thou/uL (0.0-0.7); #Lymphocytes 1.3 thou/uL (1.20-3.40); #Monocytes 1.4 thou/uL (0.11-0.59); #Neutrophils 13.3 thou/uL (1.40-6.50); %Basophils 0.8 % (0.0-1.0); %Eosinophils 1.4 % (0.0-10.0); %Lymphocytes 8.1 % (21.0-51.0); %Monocytes 8.6 % (0.0-10.0); %Neutrophils 81.2 % (42.0-75.0); Hemoglobin 15.9 g/dL (12.0-16.0); Mean Corpuscular Hemoglobin 32.5 pg (27.0-31.0); Mean Corpuscular Volume 92.8 fL (78.0-98.0); Mean Platelet Volume 8.8 fL (7.4-10.4); Platelet Count 199 thou/uL (130-400); RBC Distribution Width 10.6 % (11.5-14.5); Red Blood Cell (RBC) Count 4.89 mill/uL (4.20-5.40); White Blood Cell (WBC) Count 16.4 thou/uL (4.8-10.8)
[2019-09-22 11:58] LABS: ALT (SGPT) 12 U/L (8-55); AST (SGOT) 15 U/L (5-34); Albumin 4.2 g/dL (3.5-5.0); Alkaline Phosphatase 88 U/L (40-110); Anion Gap 14 mmol/L (10-20); BUN (Urea Nitrogen) 6 mg/dL (7.0-18.7); Bilirubin, Total 0.6 mg/dL (0.2-1.2); Calc. Creatinine Clearance 0 mL/min (70-130); Calcium 9.6 mg/dL (7.8-10.44); Carbon Dioxide 27 mmol/L (22-29); Chloride 105 mmol/L (98-107); Estimated GFR-MDRD Greater than 90; Globulin 2.7 g/dL (2.4-3.5); Glucose 100 mg/dL (70-105); Lipase 20 U/L (8-78); Potassium 3.6 mmol/L (3.5-5.1); Protein, Total 6.9 g/dL (6.0-8.3); Sodium 142 mmol/L (136-145)
[2019-09-22 12:29] LABS: Bilirubin Negative (Negative); Blood, Urine Trace (Negative); Clarity Clear (Clear); Glucose, Urine (Dipstick) Negative (Negative); Leukocyte Negative (Negative); Nitrite Negative (Negative); Protein, Urine (Dipstick) Negative (Neg-Trace); Urobilinogen 0.2 mg/dL (Less than 2)
[2019-09-22 12:32] LABS: Pregnancy Test - Urine (BHCG) Negative (Negative); Pregu Control Background? CLEAR/WHITE (CLR/WHITE); Pregu Control Bar Appear? YES (CONTROL BAR)
[2019-09-22 12:34] LABS: Bacteria/HPF Rare-Few HPF (None Seen); RBC/HPF 0-3 HPF (0-3); WBC/HPF None Seen HPF (0-3)
[2019-09-22] MEDS ORDERED: Ketorolac Tromethamine 30 MG/ML VIAL ONE (12:56)
== END 2019-09-22 13:10 | disposition home or self-care (01) ==
LOC: SCSER 11:06
DX: J02.9 Acute pharyngitis, unspecified (principal); D72.829 Elevated white blood cell count, unspecified; R10.9 Unspecified abdominal pain; F31.9 Bipolar disorder, unspecified; F17.210 Nicotine dependence, cigarettes, uncomplicated; Z79.899 Other long term (current) drug therapy
CPT/HCPCS: 80053; 81003; 81015; 81025; 83690; 85025; 87081; 87430; 96361; 96374; 96375; 96376; J1885; J2405

== ENCOUNTER 2020-01-08 13:35 | Outpatient (CLI) | payer OTHER ==
--- NOTE | 2020-01-08 13:55 | RAD ---
EXAM: 4 views of the right knee HISTORY: Knee pain along the posterior aspect COMPARISON: None FINDINGS: No knee effusion is seen. There is no evidence of acute fracture or dislocation. No signifi cant degenerative changes are seen. No soft tissue swelling is present. IMPRESSION: No evidence of acute osseous abnormality.
== END 2020-01-08 13:36 | disposition home or self-care (01) ==
LOC: BICRAD 13:35
PROVIDERS: ATTEND Family Medicine
DX: M17.11 Unilateral primary osteoarthritis, right knee (principal)

== ENCOUNTER 2020-02-04 19:57 | Emergency (ER) | payer OTHER ==
[~2020-02-04 19:57] MED LIST: Iopamidol-370 76% 500 ML 1 ML ONE
[2020-02-04] MEDS ORDERED: Ondansetron ODT 4 MG TAB ONE (20:04)
[2020-02-04 20:33] LABS: #Basophils 0.1 thou/uL (0.0-0.2); #Eosinphils 0.1 thou/uL (0.0-0.7); #Monocytes 1.2 thou/uL (0.11-0.59); #Neutrophils 11.5 thou/uL (1.40-6.50); %Basophils 0.8 % (0.0-1.0); %Eosinophils 0.8 % (0.0-10.0); %Lymphocytes 18.7 % (21.0-51.0); %Monocytes 7.4 % (0.0-10.0); %Neutrophils 72.3 % (42.0-75.0); Hemoglobin 15.6 g/dL (12.0-16.0); Mean Corpuscular HGB CONC 34.3 g/dL (32.0-36.0); Mean Corpuscular Hemoglobin 32.7 pg (27.0-31.0); Mean Corpuscular Volume 95.4 fL (78.0-98.0); Platelet Count 281 thou/uL (130-400); RBC Distribution Width 11.2 % (11.5-14.5); Red Blood Cell (RBC) Count 4.77 mill/uL (4.20-5.40)
[2020-02-04 20:43] LABS: BHCG - Serum Negative (NEGATIVE); Pregs Control Background? CLEAR/WHITE (CLR/WHITE); Pregs Control Bar Appear? YES (CONTROL BAR)
--- NOTE | 2020-02-04 20:52 | ULT ---
PELVIC ULTRASOUND: 02/04/20 HISTORY: Severe right lower quadrant pain. Real time imaging of the pelvis was obtained both transabdominally as well as with an endovaginal pro be. This shows the uterus measuring 7.4 cm in length. Endometrium is not thickened measuring in the 1 to 2 mm range. The right and left adnexa are normal ion appearance. DOPPLER EVALUATION WITH SPECTRAL ANALYSIS: Normal flow is shown to both ovaries. No free fluid seen. IMPRESSION: Essentially unremarkable pelvic ultrasound. POS: JOSE
[2020-02-04 20:55] LABS: ALT (SGPT) 9 U/L (8-55); AST (SGOT) 14 U/L (5-34); Albumin 4.7 g/dL (3.5-5.0); Alkaline Phosphatase 67 U/L (40-110); Anion Gap 14 mmol/L (10-20); BUN (Urea Nitrogen) 8 mg/dL (7.0-18.7); Bilirubin, Total 0.6 mg/dL (0.2-1.2); Calc. Creatinine Clearance 0 mL/min (70-130); Calcium 9.5 mg/dL (7.8-10.44); Carbon Dioxide 24 mmol/L (22-29); Chloride 107 mmol/L (98-107); Estimated GFR-MDRD Greater than 90; Globulin 2.8 g/dL (2.4-3.5); Glucose 99 mg/dL (70-105); Lipase 21 U/L (8-78); Potassium 3.4 mmol/L (3.5-5.1); Protein, Total 7.5 g/dL (6.0-8.3); Sodium 142 mmol/L (136-145)
[2020-02-04] MEDS ORDERED: Morphine 4 MG/ML VIAL ONE (20:59)
[2020-02-04] MEDS ORDERED: Ondansetron PF 4 MG/2 ML Vial ONE (21:07)
--- NOTE | 2020-02-04 22:03 | CT ---
CT Abdomen Pelvis W Con HISTORY: Right lower quadrant pain COMPARISON: 06/18/2019 exam. FINDINGS: The lung bases are clear. Small hypodensity within the right lobe of the liver is most likely a cyst. The spleen, pancreas and gallbladder regions are unremarkable. Right and left adrenal glands are normal. Small hypodensity within the right kidney is most compatibl e with a small cyst. Also a small cyst on the left. No obstruction. A nonobstructing punctate lower pole right and 2 lower pole left renal calculi are noted. No ureteral calculi are seen. No significan t periaortic or mesenteric adenopathy. CT of pelvis performed with contrast: The appendix is normal. Follicles are seen involving the adnexa . No evidence of adenopathy, mass or free fluid. The bladder is not fully distended. IMPRESSION: 1. Normal appendix. 2. Nonobstructing renal calculi.
[2020-02-04 22:57] LABS: Bacteria/HPF None Seen HPF (None Seen); Bilirubin Negative (Negative); Blood, Urine 2+ (Negative); Clarity Clear (Clear); Glucose, Urine (Dipstick) Normal (Negative); Leukocyte Negative Leu/uL (Negative); Nitrite Negative (Negative); Protein, Urine (Dipstick) Negative (Neg-Trace); Squamous Epithelial 0-3 HPF (0-3); Urobilinogen Normal mg/dL (Less than 2); WBC/HPF 0-3 HPF (0-3)
== END 2020-02-04 23:38 | disposition home or self-care (01) ==
LOC: ERS 19:57
DX: R10.31 Right lower quadrant pain (principal); R11.2 Nausea with vomiting, unspecified; F31.9 Bipolar disorder, unspecified; F17.210 Nicotine dependence, cigarettes, uncomplicated; Z87.442 Personal history of urinary calculi; Z79.899 Other long term (current) drug therapy
CPT/HCPCS: 36415; 74177; 76856; 80053; 81003; 81015; 83690; 84703; 85025; 96361; 96374; J2270; J2405; Q0162; Q9967

== ENCOUNTER 2020-04-01 00:06 | Emergency (ER) | payer OTHER ==
[2020-04-01 01:08] LABS: #Basophils 0.1 thou/uL (0.0-0.2); #Eosinphils 0.1 thou/uL (0.0-0.7); #Lymphocytes 1.8 thou/uL (1.20-3.40); #Monocytes 0.6 thou/uL (0.11-0.59); #Neutrophils 6.3 thou/uL (1.40-6.50); %Basophils 0.7 % (0.0-1.0); %Eosinophils 1.4 % (0.0-10.0); %Lymphocytes 19.7 % (21.0-51.0); %Monocytes 6.9 % (0.0-10.0); %Neutrophils 71.3 % (42.0-75.0); Hemoglobin 14.6 g/dL (12.0-16.0); Mean Corpuscular HGB CONC 33.1 g/dL (32.0-36.0); Mean Corpuscular Hemoglobin 32.3 pg (27.0-31.0); Mean Corpuscular Volume 97.4 fL (78.0-98.0); Mean Platelet Volume 8.1 fL (7.4-10.4); Platelet Count 223 thou/uL (130-400); RBC Distribution Width 11.2 % (11.5-14.5); Red Blood Cell (RBC) Count 4.52 mill/uL (4.20-5.40); White Blood Cell (WBC) Count 8.9 thou/uL (4.8-10.8)
[2020-04-01 01:26] LABS: ALT (SGPT) 7 U/L (8-55); AST (SGOT) 12 U/L (5-34); Albumin 4.2 g/dL (3.5-5.0); Alkaline Phosphatase 52 U/L (40-110); Anion Gap 11 mmol/L (10-20); BUN (Urea Nitrogen) 9 mg/dL (7.0-18.7); Bilirubin, Total 1.1 mg/dL (0.2-1.2); Calc. Creatinine Clearance 0 mL/min (70-130); Calcium 8.6 mg/dL (7.8-10.44); Carbon Dioxide 25 mmol/L (22-29); Chloride 106 mmol/L (98-107); Estimated GFR-MDRD Greater than 90; Globulin 2.6 g/dL (2.4-3.5); Glucose 91 mg/dL (70-105); Potassium 3.4 mmol/L (3.5-5.1); Protein, Total 6.8 g/dL (6.0-8.3); Sodium 139 mmol/L (136-145)
[2020-04-01 01:36] LABS: Pregnancy Test - Urine (BHCG) Negative (Negative); Pregu Control Background? CLEAR/WHITE (CLR/WHITE); Pregu Control Bar Appear? YES (CONTROL BAR); Specific Gravity 1.012 (1.002-1.036)
[2020-04-01 01:38] LABS: Bilirubin Negative (Negative); Blood, Urine Negative (Negative); Clarity Turbid (Clear); Glucose, Urine (Dipstick) Normal (Negative); Leukocyte 500 Leu/uL (Negative); Nitrite Negative (Negative); Protein, Urine (Dipstick) Negative (Neg-Trace); Urobilinogen Normal mg/dL (Less than 2); WBC/HPF 21-50 HPF (0-3)
[2020-04-01 01:49] LABS: Bacteria/HPF 1+ HPF (None Seen)
[2020-04-01] MEDS ORDERED: Promethazine 25 MG TAB ONE (02:41)
== END 2020-04-01 02:44 | disposition home or self-care (01) ==
LOC: ERS 00:06
DX: N39.0 Urinary tract infection, site not specified (principal); R11.2 Nausea with vomiting, unspecified; R10.9 Unspecified abdominal pain; F31.9 Bipolar disorder, unspecified; F41.9 Anxiety disorder, unspecified; F17.210 Nicotine dependence, cigarettes, uncomplicated; Z87.442 Personal history of urinary calculi; Z79.899 Other long term (current) drug therapy
CPT/HCPCS: 36415; 80053; 81003; 81015; 81025; 85025; 99284; Q0169

== ENCOUNTER 2020-11-08 06:22 | Emergency (ER) | payer OTHER, SELFPAY ==
[2020-11-08 19:23] LABS: SARS-CoV-2 MS2 Positive; SARS-CoV-2 N Gene Positive; SARS-CoV-2 S Gene Positive; SARS-CoV-2 by NAA DETECTED (NotDetected); SARS-CoV-2 orf1ab Positive
== END 2020-11-08 06:50 | disposition home or self-care (01) ==
LOC: ERS 06:22
DX: U07.1 COVID-19 (principal); F17.210 Nicotine dependence, cigarettes, uncomplicated; Z79.899 Other long term (current) drug therapy
CPT/HCPCS: 87635; 99284; U0003

== ENCOUNTER 2021-08-22 17:23 | Emergency (ER) | payer OTHER ==
[2021-08-22] MEDS ORDERED: Haloperidol Lactate 5 MG/ML VIAL ONE (18:14)
[2021-08-22] MEDS ORDERED: Ketorolac Tromethamine 30 MG/ML VIAL ONE (18:15)
[2021-08-22] MEDS ORDERED: diphenhydrAMINE 50 MG/ML VIAL ONE (18:15)
[2021-08-22 18:17] LABS: #Basophils 0.1 thou/uL (0.0-0.2); #Eosinphils 0.2 thou/uL (0.0-0.7); #Lymphocytes 2.4 thou/uL (1.20-3.40); #Monocytes 1.2 thou/uL (0.11-0.59); #Neutrophils 9.7 thou/uL (1.40-6.50); %Basophils 0.9 % (0.0-1.0); %Eosinophils 1.5 % (0.0-10.0); %Lymphocytes 17.9 % (21.0-51.0); %Monocytes 8.9 % (0.0-10.0); %Neutrophils 70.9 % (42.0-75.0); Hemoglobin 16.4 g/dL (12.0-16.0); Mean Corpuscular HGB CONC 34.3 g/dL (32.0-36.0); Mean Corpuscular Hemoglobin 32.9 pg (27.0-31.0); Mean Corpuscular Volume 95.8 fL (78.0-98.0); Mean Platelet Volume 8.1 fL (7.4-10.4); Platelet Count 240 thou/uL (130-400); RBC Distribution Width 11.5 % (11.5-14.5); Red Blood Cell (RBC) Count 4.98 mill/uL (4.20-5.40); White Blood Cell (WBC) Count 13.6 thou/uL (4.8-10.8)
[2021-08-22 18:19] LABS: Bacteria/HPF None Seen HPF (None Seen); Bilirubin Negative (Negative); Blood, Urine 3+ (Negative); Clarity Clear (Clear); Glucose, Urine (Dipstick) Normal (Negative); Ketone, Urine Negative (Negative); Leukocyte Negative Leu/uL (Negative); Nitrite Negative (Negative); Pregnancy Test - Urine (BHCG) Negative (Negative); Pregu Control Background? CLEAR/WHITE (CLR/WHITE); Pregu Control Bar Appear? YES (CONTROL BAR); Protein, Urine (Dipstick) 20 mg/dL (Neg-Trace); Specific Gravity 1.014 (1.002-1.036); Specific Gravity, Urine 1.014 (1.002-1.036); Squamous Epithelial 0-3 HPF (0-3); Urobilinogen Normal mg/dL (Less than 2); pH, Urine 7.5 (5.0-9.0)
[2021-08-22 18:24] LABS: BHCG - Serum Negative (NEGATIVE); Pregs Control Background? CLEAR/WHITE (CLR/WHITE); Pregs Control Bar Appear? YES (CONTROL BAR)
[2021-08-22] MEDS ORDERED: Midazolam HCl 2 mg/2 ml Vial ONE (18:27)
[2021-08-22 18:31] LABS: ALT (SGPT) 8 U/L (8-55); AST (SGOT) 13 U/L (5-34); Albumin 4.3 g/dL (3.5-5.0); Alkaline Phosphatase 83 U/L (40-110); Anion Gap 13 mmol/L (10-20); BUN (Urea Nitrogen) 6 mg/dL (7.0-18.7); Bilirubin, Total 0.7 mg/dL (0.2-1.2); Calc. Creatinine Clearance 0 mL/min (70-130); Calcium 9.9 mg/dL (7.8-10.44); Carbon Dioxide 25 mmol/L (22-29); Chloride 108 mmol/L (98-107); Globulin 2.8 g/dL (2.4-3.5); Glucose 103 mg/dL (70-105); Potassium 3.7 mmol/L (3.5-5.1); Protein, Total 7.1 g/dL (6.0-8.3); Sodium 142 mmol/L (136-145)
[2021-08-22] MEDS ORDERED: Promethazine HCl 25 MG/ML VIAL ONE (20:11)
== END 2021-08-22 21:49 | disposition home or self-care (01) ==
LOC: ERS 17:23
DX: R11.15 Cyclical vomiting syndrome unrelated to migraine (principal); N83.202 Unspecified ovarian cyst, left side; F17.210 Nicotine dependence, cigarettes, uncomplicated; Z87.442 Personal history of urinary calculi; Z79.899 Other long term (current) drug therapy
CPT/HCPCS: 74177; 76856; 80053; 81003; 81015; 81025; 83690; 84703; 85025; 96374; 96375; J1200; J1630; J1885; J2250; J2550

== ENCOUNTER 2023-01-18 16:04 | Emergency (ER) | payer OTHER, SELFPAY ==
[2023-01-18] MEDS ORDERED: Ondansetron ODT 4 MG TAB ONE (17:36)
[2023-01-18] MEDS ORDERED: Ibuprofen 800 MG TAB ONE (17:36)
[2023-01-18 18:16] LABS: SARS-CoV-2 NAA Rapid Test DETECTED (NotDetected)
== END 2023-01-18 17:44 | disposition home or self-care (01) ==
LOC: ERS 16:04
DX: J11.1 Influenza due to unidentified influenza virus with other respiratory manifestations (principal); I10 Essential (primary) hypertension; F17.210 Nicotine dependence, cigarettes, uncomplicated; Z20.822 Contact with and (suspected) exposure to COVID-19
CPT/HCPCS: 99283; Q0162

== ENCOUNTER 2024-05-31 04:24 | Emergency (ER) | payer OTHER ==
[2024-05-31 05:12] LABS: #Basophils 0.06 10x3/uL (0.0-0.2); %Basophils 0.8 % (0.0-1.0); %Eosinophils 2.8 % (0.0-10.0); %Lymphocytes 36.4 % (21.0-51.0); %Neutrophils 51.7 % (42.0-75.0); Hematocrit 41.6 % (36.0-47.0); Hemoglobin 14.3 g/dL (12.0-16.0); Mean Corpuscular HGB CONC 34.4 g/dL (32.0-36.0); Mean Corpuscular Hemoglobin 33.1 pg (27.0-31.0); Mean Corpuscular Volume 96.3 fL (78.0-98.0); Mean Platelet Volume 9.8 fL (7.4-10.4); Platelet Count 232 10x3/uL (130-400); RBC Distribution Width 11.9 % (11.5-14.5); Red Blood Cell (RBC) Count 4.32 mill/uL (4.20-5.40)
[2024-05-31 05:21] LABS: BHCG - Serum Negative (NEGATIVE); Pregs Control Background? CLEAR/WHITE (CLR/WHITE); Pregs Control Bar Appear? YES (CONTROL BAR)
[2024-05-31 05:27] LABS: PTT 30.2 sec (22.9-36.1); Prothrombin Time 12.8 sec (12.0-14.7)
[2024-05-31 05:30] LABS: ALT (SGPT) 5 U/L (8-55); AST (SGOT) 11 U/L (5-34); Albumin 3.8 g/dL (3.5-5.0); Alkaline Phosphatase 51 U/L (40-110); Anion Gap 12 mmol/L (10-20); BUN (Urea Nitrogen) 8 mg/dL (7.0-18.7); Bilirubin, Total 0.5 mg/dL (0.2-1.2); Calc. Creatinine Clearance 0 mL/min (70-130); Calcium 8.8 mg/dL (7.8-10.44); Carbon Dioxide 22 mmol/L (22-29); Chloride 107 mmol/L (98-107); Estimated GFR 124; Globulin 2.6 g/dL (2.4-3.5); Glucose 96 mg/dL (70-105); Potassium 3.4 mmol/L (3.5-5.1); Protein, Total 6.4 g/dL (6.0-8.3); Sodium 138 mmol/L (136-145)
[2024-05-31 06:01] LABS: Bacteria/HPF None Seen HPF (None Seen); Bilirubin Negative (Negative); Blood, Urine 3+ (Negative); CAUTI Indications for Culture < 2yrs of age; Calcium Oxalate Crystals 4+ HPF (None Seen); Clarity Clear (Clear); Glucose, Urine (Dipstick) Normal (Negative); Ketone, Urine Negative (Negative); Leukocyte 75 Leu/uL (Negative); Nitrite Negative (Negative); Protein, Urine (Dipstick) 20 mg/dL (Neg-Trace); RBC/HPF Greater than 50 HPF (0-3); Specific Gravity, Urine 1.022 (1.002-1.036); Squamous Epithelial 0-3 HPF (0-3); Urobilinogen Normal mg/dL (Less than 2); pH, Urine 5.5 (5.0-9.0)
[2024-05-31 06:02] LABS: Urine Culture Reflex Yes Yes
[2024-05-31] MEDS ORDERED: Fluconazole 100 MG TAB ONE (06:34)
== END 2024-05-31 06:37 | disposition home or self-care (01) ==
LOC: ERS 04:24
DX: A60.04 Herpesviral vulvovaginitis (principal); B37.31 Acute candidiasis of vulva and vagina; F17.210 Nicotine dependence, cigarettes, uncomplicated; I10 Essential (primary) hypertension
CPT/HCPCS: 36415; 80053; 81001; 84703; 85025; 85610; 85730; 87086; 99284